=== PATIENT | female | born 1970 | race African-American/Black ===

== ENCOUNTER 2025-08-17 12:18 | Outpatient (REF) | payer OTHER, SELFPAY | END 2025-08-17 12:19 | disposition home or self-care (01) | LOC: HO.LNP 12:18 | PROVIDERS: PCP Internal Medicine; Visit Provider Obstetrics & Gynecology | DX: N95.0 Postmenopausal bleeding (principal) | CPT/HCPCS: 87626; 88175 ==

== ENCOUNTER 2025-08-17 12:18 | Outpatient (AMB) | payer OTHER, SELFPAY ==
--- NOTE | 2025-08-17 12:33 | A.OFFVIS_ITS ---
Vital Signs 08/17/25 12:36 Height 5 ft 7 in Weight 233 lb BMI 36.5 BP 130/80 Blood Pressure Location Lt brachial Position Sitting Intake Visit Reasons: pmb Intake Note: no menses x 15 mos, then 07/12 25 had period x 4 days. Country Printer Required: No Allergies acetaminophen (From Vicodin) Allergy (Intermediate, Verified 08/17/25 12:40) Nausea and Vomiting hydrocodone (From Vicodin) Allergy (Intermediate, Verified 08/17/25 12:40) Nausea and Vomiting Medication List - Last Reconciled 08/17/25 by Margie Glover LPN atorvastatin (Lipitor) 40 mg PO DAILY losartan 100 mg PO DAILY Is last menstrual period known: Yes Last menstrual period: 04/12/24 Post menopausal: Yes Patient : No HPI Comments Details: Presenting complaining of an episode of vaginal bleeding after 15 months of a menorrhea [facility] Family History Mother High blood pressure determined by examination Father No problems noted. Female Reproductive History Menstrual Age of Menarche: 15 Date of last menstrual period: 04/12/24 Review of Systems Const All systems reviewed & are unremarkable except as noted in HPI and below Physical Exam Vital Signs: Last Vital Signs BP 130/80 08/17/25 12:36 BMI result Body Mass Index 36.5 General: Yes no CVA tenderness External Female Exam: normal external appearance and normal appearance of the urethra Speculum Exam - Vagina: normal appearance of the vagina, normal palpation, no lesions and no masses Speculum Exam - Cervix: normal appearance of the cervix, normal palpation, no lesions, no masses and nontender Bimanual exam- vagina & uterus: normal bimanual exam, normal palpation, uterine size normal, normal palpation, uterine shape normal, No Cervical tenderness present and non-tender Bimanual Exam- Adnexa, other: normal adnexae Back/Spine/Pelvis Back: no CVA tenderness Assessment & Plan Assessment & Plan (1) Postmenopausal bleeding: Code(s): N95.0 - Postmenopausal bleeding Category: Medical Plan: Discussed with the patient the differential diagnosis of post menopausal bleeding with normal pelvic exam including but not limited to, endometrial hyperplasia, cancer, polyps and other causes; co testing done, recommended ultr asound to measure the endometrial stripe; discussed with the patient that if the endometrial thickness is 4 mm or less the negative predictive value of endometrial pathology is 99%, otherwise If endometrial thickness is more than 4 mm will proceed with endometrial sampling versus hysteroscopy D&C polypectomy depending on the ultrasound findings. Instructed the patient to schedule an ultrasound with a follow-up appointment in 2 weeks. All questions answered, the patient verbalized understanding and agreed with the plan. This note was generated with a voice recognition program. Some errors may have been overlooked during the review of this note. Sometimes these errors may affect the content or meaning of a given sentence. Orders: Orders US pelvic and transvaginal Today N95.0 - Postmenopausal bleeding Coding Level of Care Code New Pt Level 3 (07578) Diagnoses Postmenopausal bleeding N95.0
[2025-08-17 12:36] VITALS: BP 130/80; BMI 36.5
--- OUTSIDE RECORDS SUMMARY | 2025-08-17 15:14 | XMS_ITS | Encounter Summary ---
Author Organization [facility] Address [address] [place] [address] Care Team Providers Care Social Worker School Name Role Phone Oni Graham MD Primary Care Provider [phone] Kirstie Martínez MD Primary Care Provider [phone] Unknown Pcp, Non g Primary Care Provider Unava ilZabrina Craig MD Primary Care Provider [phone] Encounter Details Date Type Department Care Team (Late st Contact Info) Description 04/06/2019 Orders Only [facility] Primary Care Internal Medicine [address] [place] [address] [address] [place] [id number] Oni Graham MD [facility] [address] [place] [id number] Social History Tobacco Use Types Packs/Day Years Used Date Smoking Tobacco: Never Smokeless Tobacco: Never Alcohol Use Standard Drinks/Week Comments Yes 0 (1 standard drink = 0.6 oz pur e alcohol) 2-4 glasses wine/week Comments No Sex and Gender Information Value Date Recorded Sex Assigned at Not on file Legal Sex Female 9:06 AM EDT Gender Identity Not on file Sexual Orientation Not on file Occupation Industry Job Start Date Job End 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 She should complete course of nitrofurantoin as prescribed. * Oni Graham MD - 04/07/2019 7:52 AM EDT Urinalysis consistent with UTI. Please start patient on Macrobid 100 mg twice daily for 5 days pending results of culture documented in this encounter Plan of Treatment Not on file documented as of this encounter Procedures * Due to [place] [employer] law, this organization might not be sharing negative HIV tests. Procedure Name Priority Date/Time Associated Diagnosis Comments CULTURE, URINE, ROUTINE Routine 04/06/2019 11:04 AM EDT Urinary frequency Burning with urination URINALYSIS, COMPLETE INCLUDES DIPSTICK AND MICROSCOPIC Routine 04/06/2019 11:04 AM EDT Urinary frequency Burning with urination documented in this encounter Results * Due to [place] [employer] law, this organization might not be sharing negative HIV tests. * (ABNORMAL) URINALYSIS, COMPLETE INCLUDES DIPSTICK AND MICROSCOPIC (04/06/2019 11:04 AM EDT) Color (Urine) YELLOW YELLOW [facility] Appearance (Urine) CLOUDY(A) CLEAR [facility] Specific gravity (Urine) 1.012 1.001 - 1.035 [facility] pH (Urine) 6.0 5.0 - 8.0 [facility] Glucose (Urine) NEGATIVE NEGATIVE [facility] Bilirubin (Urine) NEGATIVE NEGATIVE [facility] Ketones (Urine) NEGATIVE NEGATIVE [facility] Hemoglobin (Urine) 3+(A) NEGATIVE [facility] Protein (Urine) NEGATIVE NEGATIVE [facility] Nitrite (Urine) POSITIVE(A) NEGATIVE [facility] Leukocyte esterase (Urine) 3+(A) NEGATIVE [facility] WBC (Urine) > OR = 60(A) < OR = 5 /HPF [facility] RBC (Urine Sed) 3-10(A) < OR = 2 /HPF [facility] Epithelial cells.squamous (Urine sed) 0-5 < OR = 5 /HPF [facility] Bacteria (Urine) FEW(A) NONE SEEN /HPF [facility] Hyaline casts (Urine sed) NONE SEEN NONE SEEN /LPF [facility] 04/06/2019 11:0 4 AM EDT 04/06/2019 7:55 PM EDT Narrative Resulting Agency Comment [id number] [facility] SAME DAY RESULT Final Resul t [facility] [address] [place] [address] * (ABNORMAL) CULTURE, URINE, ROUTINE (04/06/2019 11:04 AM EDT) Bacteria culture (Urine) SEE NOTE(A) [facility] Comment: CULTURE, URINE, ROUTINE MICRO NUMBER: [id number] TEST STATUS: FINAL SPECIMEN SOURCE: NOT GIVEN SPECIMEN QUALITY: ADEQUATE RESULT: Greater than 100,000 CFU/mL of Escherichia coli E.coli INT WILL AMOX/CLAVULANATE S <=2 AMPICILLIN S 4 AMP/SULBACTAM S <=2 CEFAZOLIN NR <=4 2 CEFEPIME S <=1 CEFTRIAXONE S <=1 CIPROFLOXACIN S <=0.25 ERTAPENEM S <=0.5 GENTAMICIN S <=1 IMIPENEM S <=0.25 LEVOFLOXACIN S <=0.12 NITROFURANTOIN S <=16 PIP/TAZOBACTAM S <=4 TOBRAMYCIN S <=1 TRIMETHOPRIM/SULFA S <=20 S=Susceptible I=Intermediate R=Resistant * = Not Tested NR = Not Reported NN = See Therapy Comments THERAPY COMMENTS Note 1: For infections other than uncomplicated UTI caused by E. coli, K. pneumoniae or P. mirabilis: Cefazolin is resistant if WILL > or = 8 mcg/mL. (Distinguishing susceptible versus intermediate for isolates with WILL < or = 4 mcg/mL requires additional testing.) Note 2: For uncomplicated UTI caused by E. coli, K. pneumoniae or P. mirabilis: Cefazolin is susceptible if WILL <32 mcg/mL and predicts susceptible to the oral agents cefaclor, cefdinir, cefpodoxime, cefprozil, cefuroxime, cephalexin and loracarbef. 04/06/2019 11:0 4 AM EDT 04/06/2019 7:55 PM EDT Narrative Resulting Agency Comment [id number] [facility] Final Result Performing Organization Address City/State/[facility] Co de Phone Number [facility] [address] [place] [address] documented in this encounter Visit Diagnoses Diagnosis Urinary frequency Burning with urination Dysuria documented in this encounter Care Teams Social Worker School Relationship Specialty Start Date End Date Oni Graham MD PCP - General 10/06/17 09/13/20 Kirstie Martínze MD [address] [place] [id number] PCP - General 09/14/20 02/22/22 Unknown Pcp, Non Rmg PCP - General 02/23/22 02/25/22 Zabrina Price MD [address] [address] PCP - General Family Medicine 02/26/22 documented as of this encounter
--- OUTSIDE RECORDS SUMMARY | 2025-08-17 15:14 | XMS_ITS | Clinical Summary ---
Author Organization [facility] Address [address] [place] [phone] Phone Care Team Providers Care Access Developer Name Role Phone Kelly Jaimes MD Primary Care Provider [phone] Allergies Active Allergy Reactions Criticality Noted Date Comments Hydrocodone Nausea And Vomiting High 03/25/2024 Vicoden-causes severe sick to stomach Medications polyethylene glycol (Golytely) 236-22.74-6.74 -5.86 gram solution Take 4L by mouth once for one dose. May substitue any PEG. Starting at 6PM the night before your procedure drink 1 8oz glasses at your own pace until you complete half of the gallon. Finish 2nd half of the gallon 5 hours before your procedure. 4000 mL 4 Active bisacodyL (DULCOLAX) 5 mg EC tablet Take 2 tablets by mouth right before beginning bowel prep. See instructions provided by the office 2 tablet 4 Active cranberry fruit 400 mg tablet Take 500 mg by mouth daily. Active multivitamin (multivitamin-i benjamín-minerals) tablet Take by mouth daily. Active senna-docusate (PERICOLACE) 8.6-50 mg per tablet Take 1 tablet by mouth 1 (one) time each day. Active Medical History Medical History Date Comments Hypertension Hyperlipidemia Chronic constipation GERD (gastroesophageal reflux disease) Varicose veins of both lower extremities Family History Medical History Relation Name Comments Breast cancer Mother's Sister Relation Name Status Comments Mother's Sister Social History Tobacco Use Types Packs/Day Years Used Date Smoking Tobacco: Never Smokeless Tobacco: Never Tobacco Cessation:Counseling Given: Not Answered Alcohol Use Standard Drinks/Week Comments Yes 0 (1 standard drink = 0.6 oz pure alcohol) 1-2 DRINKS PER EVENT AND DRINKS MAYBE 4 TIMES PER WEEK Interpersonal Safety Answer Date Record ed Physical Abuse Unrecognized value 09/06/2024 Verbal Abuse Unrecognized value 09/06/2024 Comments No Sex and Gender Information Value Date Recorded Sex Assigned at Female 09/06/2024 11:08 AM EST Legal Sex Female 11:05 AM EDT Gender Identity Female 09/06/2024 11:08 AM EST Sexual Orientation Straight 09/06/2024 11 :08 AM EST Obstetrics History Last Filed Vital Signs Vital Sign Reading Time Taken Comments Blood Pressure 134/68 09/06/2024 1:25 PM EST Pulse 78 09/06/2024 1:25 PM EST Temperature 36.7 C (98 F) 09/06/2024 1:05 PM EST Respiratory Rate 18 09/06/2024 1:25 PM EST Oxygen Saturation 100% 09/06/2024 1:25 PM EST Inhaled Oxygen Concentration - - Weight 102 kg (225 lb) 09/06/2024 11:51 AM EST Height 170.2 cm (5' 7 ) 09/06/2024 11:51 AM EST Body Mass Index 35.24 09/06/2024 11:51 AM EST Plan of Treatment Health Maintenance Due Date Last Done Comments Hepatitis B Vaccines (1 of 3 - 19+ 3-dose series) 1991 Cervical Cancer Screening: Pap Smear 1993 Pneumococcal Vaccine: 50+ Years (1 of 1 - PCV) 2022 Zoster Vaccines (1 of 2) 2022 Breast Cancer Screening 10/07/2023 10/07/2021 Cholesterol Screening (Lipid Panel) 05/06/2024 HIV Screening 05/06/2024 Hepatitis C Screening 05/06/2024 Social Influencers of Health Screening 05/06/2024 Depression Screening 10/12/2024 COVID-19 Vaccine ( season) 2025 10/10/2021, 11/16/2020, 10/19/2020 Influenza Vaccine (#1) 2025 , 06/24/2023, 07/09/2022, Additional history exists DTaP,Tdap,and Td Vaccines (3 - Td or Tdap) 01/31/2029 01/31/2019, 11/09/2008 Colorectal Cancer Screening: Colonoscopy 09/06/2029 09/06/2024 RSV Immunization Adult Patients (1 - 1-dose 75+ series) 2047 HIB Vaccines Aged Out No longer eligi ble based on patient's age to complete this topic HPV Vaccines Aged Out No longer eligi ble based on patient's age to complete this topic Hepatitis A Vaccines Aged Out No long er eligible based on patient's age to complete this topic IPV Vaccines Aged Out No longer eligi ble based on patient's age to complete this topic MMR Vaccines Aged Out No longer eligi ble based on patient's age to complete this topic Meningococcal ACWY Vaccine Aged Out N o longer eligible based on patient's age to complete this topic Meningococcal B Vaccine Aged Out No l onger eligible based on patient's age to complete this topic RSV Immunization Patients Under 20 months Aged Out No longer eligible based on patient's age to complete this topic Varicella Vaccines Aged Out No longer eligible based on patient's age to complete this topic Procedures Procedure Name Priority Date/Time Associated Diagnosis Comments COLONOSCOPY Routine 09/06/2024 1:04 PM EST Encounter for screening for malignant neoplasm of colon from Last 3 Months or Most Recently Relevant to Health Maintenance Results * COLONOSCOPY Anesthesia - MAC; [facility] ENDOSCOPY (09/06/2024 1:04 PM EST) Anatomical Region Laterality Modality Endoscopy 09/06/2024 12:4 1 PM EST Impressions 09/06/2024 1:06 PM EST - Two diminutive polyps in the transverse colon and in the ascending colon, removed with a jumbo cold forceps. Resected and retrieved. - Internal hemorrhoids. Recommendation: - Await pathology results. - Repeat colonoscopy in 5 years for surveillance. Narrative 09/06/2024 1:[address] [facility] GI Patient Name: Aziza Walters Procedure Date: 09/06/2024 12:41 PM Date of : 1970 Age: 53 Gender: Female Note Status: Finalized Attending MD: Yahaira Conroy MD, Procedure Date No Time: 09/06/2024 Procedure: Colonoscopy Indications: Screening for colorectal malignant neoplasm Providers: Yahaira Conroy MD Referring MD: Yahaira Conroy MD Medicines: Monitored Anesthesia Care Complications: No immediate complications. Estimated blood loss: Minimal. Estimated Blood Loss: Estimated blood loss was minimal. Procedure: Pre-Anesthesia Assessment: - Prior to the procedure, a History and Physical was performed, and patient medications and allergies were reviewed. The patient is competent. The risks and benefits of the procedure and the sedation options and risks were discussed with the patient. All questions were answered and informed consent was obtained. Patient identification and proposed procedure were verified by the physician, the nurse, the furnace operator and the astro technician in the pre-procedure area in the endoscopy suite. Mental Status Examination: alert and oriented. Airway Examination: normal oropharyngeal airway and neck mobility. Respiratory Examination: clear to auscultation. CV Examination: normal. Prophylactic Antibiotics: The patient does not require prophylactic antibiotics. Prior Anticoagulants: The patient has taken no anticoagulant or antiplatelet agents. ASA Grade Assessment: III - A patient with severe systemic disease. After reviewing the risks and benefits, the patient was deemed in satisfactory condition to undergo the procedure. The anesthesia plan was to use monitored anesthesia care (MAC). Immediately prior to administration of medications, the patient was re-assessed for adequacy to receive sedatives. The heart rate, respiratory rate, oxygen saturations, blood pressure, adequacy of pulmonary ventilation, and response to care were monitored throughout the procedure. The physical status of the patient was re-assessed after the procedure. After I obtained informed consent, the scope was passed under direct vision. Throughout the procedure, the patient's blood pressure, pulse, and oxygen saturations were monitored continuously. The Colonoscope was introduced through the anus and advanced to the cecum, identified by appendiceal orifice and ileocecal valve. The colonoscopy was performed without difficulty. The patient tolerated the procedure well. The quality of the bowel preparation was good. Findings: The perianal and digital rectal examinations were normal. Two sessile polyps were found in the transverse colon and ascending colon. The polyps were diminutive in size. These polyps were removed with a jumbo cold forceps. Resection and retrieval were complete. Estimated blood loss was minimal. Internal hemorrhoids were found during retroflexion. The hemorrhoids were Grade I (internal hemorrhoids that do not prolapse). Procedure Code(s): --- Professional --- 36254, Colonoscopy, flexible; with biopsy, single or multiple Diagnosis Code(s): --- Professional --- D12.3, Benign neoplasm of transverse colon (hepatic flexure or splenic flexure) D12.2, Benign neoplasm of ascending colon CPT copyright 2020 [employer]. All rights reserved. The codes documented in this report are preliminary and upon helicopter pilot review may be revised to meet current compliance requirements. Yahaira Conroy MD 09/06/2024 1:05:55 PM This report has been signed electronically.Yahaira Conroy MD Number of Addenda: 0 Note Initiated On: 09/06/2024 12:41 PM Scope Withdrawal Time: 0 hours 6 minutes 17 seconds Scope In: 12:46:55 PM Scope Out: 1:04:01 PM Endoscopy Department at [facility] - [address] [place] [id number] Procedure Note Yahaira Conroy MD - 09/06/2024 [facility] GI Patient Name: Aziza Walters Procedure Date: 09/06/2024 12:41 PM Date of : 1970 Age: 53 Gender: Female Note Status: Finalized Attending MD: Yahaira Conroy MD, Procedure Date No Time: 09/06/2024 Procedure: Colonoscopy Indications: Screening for colorectal malignant neoplasm Providers: Yahaira Conroy MD Referring MD: Yahaira Conroy MD Medicines: Monitored Anesthesia Care Complications: No immediate complications. Estimated blood loss: Minimal. Estimated Blood Loss: Estimated blood loss was minimal. Procedure: Pre-Anesthesia Assessment: - Prior to the procedure, a History and Physicalwas performed, and patient medications and allergieswere reviewed. The patient is competent. The risks and benefits of the procedure and the sedation optionsand risks were discussed with the patient. Allquestions were answered and informed consent was obtained. Patient identification and proposed procedure were verified by the physician, the nurse, theanesthetist and the astro technician in the pre-procedure area in the endoscopy suite. Mental Status Examination: alertand oriented. Airway Examination: normal oropharyngeal airway and neck mobility. Respiratory Examination: clear to auscultation. CV Examination: normal. Prophylactic Antibiotics: The patient does notrequire prophylactic antibiotics. Prior Anticoagulants: The patient has taken no anticoagulant or antiplatelet agents. ASA Grade Assessment: III - A patient with severe systemic disease. After reviewing the risksand benefits, the patient was deemed in satisfactory condition to undergo the procedure. The anesthesia plan was to use monitored anesthesia care (MAC). Immediately prior to administration of medications, the patient was re-assessed for adequacy to receive sedatives. The heart rate, respiratory rate, oxygen saturations, blood pressure, adequacy of pulmonary ventilation, and response to care were monitored throughout the procedure. The physical status ofthe patient was re-assessed after the procedure. After I obtained informed consent, the scope was passed under direct vision. Throughout theprocedure, the patient's blood pressure, pulse, and oxygen saturations were monitored continuously. The Colonoscope was introduced through the anus and advanced to the cecum, identified by appendiceal orifice and ileocecal valve. The colonoscopy was performed without difficulty. The patient tolerated the procedure well. The quality of the bowel preparation was good. Findings: The perianal and digital rectal examinations were normal. Two sessile polyps were found in the transversecolon and ascending colon. The polyps were diminutive in size. These polyps were removed with a jumbo cold forceps. Resection and retrieval were complete. Estimated blood loss was minimal. Internal hemorrhoids were found duringretroflexion. The hemorrhoids were Grade I (internal hemorrhoids that do not prolapse). Procedure Code(s): --- Professional --- 54361, Colonoscopy, flexible; with biopsy, singleor multiple Diagnosis Code(s): --- Professional --- D12.3, Benign neoplasm of transverse colon (hepatic flexure or splenic flexure) D12.2, Benign neoplasm of ascending colon CPT copyright 2020 [employer]. All rights reserved. The codes documented in this report are preliminary and upon helicopter pilot reviewmay be revised to meet current compliance requirements. Yahaira Conroy MD 09/06/2024 1:05:55 PM This report has been signed electronically.Yahaira Conroy MD Number of Addenda: 0 Note Initiated On: 09/06/2024 12:41 PM Scope Withdrawal Time: 0 hours 6 minutes 17 seconds Scope In: 12:46:55 PM Scope Out: 1:04:01 PM Endoscopy Department at [facility] - [address] [place] [id number] IMPRESSION: - Two diminutive polyps in the transverse colon and in the ascending colon, removed with a jumbo cold forceps. Resected and retrieved. - Internal hemorrhoids. Recommendation: - Await pathology results. - Repeat colonoscopy in 5 years for surveillance. aYhaira Conroy MD GI~PROCEDURE ORDERABLES Fin al Result from Last 3 Months or Most Recently Relevant to Health Maintenance Insurance [facility] Care Teams Access Developer Relationship Specialty Start Date End Date Kelly aJimes MD [address] [place] [address] [place] [address] PCP - General 12/18/23
--- OUTSIDE RECORDS SUMMARY | 2025-08-17 15:14 | XMS_ITS | Continuity of Care Document ---
Author Organization [facility] Address [address] [place] [address] Care Team Providers Care Stock Unloader Name Role Phone Zabrina Price MD Primary Care Provider [phone] Encounters Date Type Department Care Team Description 10/07/2021 3:30 PM EST Radiology [address] [phone] 10/01/[address] [phone] Esme Mcdonald Tech [facility] Program 10/01/[address] [phone] Kirstie Martínez MD Patient Questions 06/04/[address] [phone] Kirstie Martínez MD Results ; Labs/orders 05/27/2021 Minor Procedure/Test [address] [phone] Letty Ferreira NP 05/23/2021 1:15 PM EDT Office Visit [address] [phone] Letty Ferreira NP Superficial thrombophlebitis of right leg (Primary Dx); Varicose veins of both lower extremities with inflammation 05/16/[address] [address] Kirstie Martínez MD Results 05/13/2021 1:45 PM EDT Office Visit [address] [address] Kirstie Martínez MD Pain and swelling of right lower leg (Primary Dx); Superficial thrombophlebitis of right leg 05/13/[address] [address] Kirstie Martínez MD Knee Pain (Right); Varicose Veins 03/26/[address] [address] Kirstie Martínez MD Labs/orders 03/26/[address] [address] Kirstie Martínez MD Results ; Labs/orders 03/25/2021 Orders Only [address] [address] Kirstie Martínez MD 03/25/2021 Travel 03/25/2021 8:30 AM EDT CPE - 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 [address] [address] Kirstie Martínez MD Routine history and physical examination of adult (Primary Dx); Irregular menses; Vitamin D deficiency; Hyperlipidemia, unspecified hyperlipidemia type; Encounter for screening for malignant neoplasm of breast, unspecified screening modality; Lipid screening; Screening for diabetes mellitus; Screening for colon cancer 01/22/[address] [address] Keila Vera CMA Appointment 06/08/2020 Travel 06/08/2020 2:30 PM EDT Radiology [facility] Mammography [address] [place] [phone] Breast cancer screening by mammogram 02/07/2020 Travel 01/25/2020 Travel 06/23/2019 Letter/Form [facility] Primary Care Internal Medicine [address] [facility] [address] [place] [address] Oni Graham MD 05/16/2019 Telephone [facility] Primary Care Internal Medicine [address] [facility] [address] [place] [address] Oni Graham MD UTI 05/10/2019 Telephone [facility] Primary Care Internal Medicine [address] [facility] [address] [place] [phone] Oni Graham MD Patient Questions 04/07/2019 Telephone [facility] Primary [facility] Internal Medicine [address] [address] Oni Graham MD Results (Confirmed pharmacy) 04/06/2019 Orders Only [facility] Primary [facility] Internal Medicine [address] [address] Oni Graham MD 04/06/2019 Telephone [facility] Primary [facility] Internal Medicine [address] [address] Oni Graham MD UTI 02/19/2019 8:45 AM EDT Radiology [facility]. Mammography [address] [place] [address] Screening breast examination 01/31/2019 Orders Only [facility] Primary [facility] Internal Medicine [address] [address] Oni Graham MD Medications 01/31/2019 3:00 PM EDT CPE - 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 [facility] Primary [facility] Internal Medicine [address] [address] Oni Graham MD Routine history and physical examination of adult (Primary Dx); Other neutropenia; Vitamin D deficiency; Screening for nephropathy; Obesity, unspecified classification, unspecified obesity type, unspecified whether serious comorbidity present; Screening breast examination; Encounter for gynecological examination without abnormal finding; Screening for diabetes mellitus; Screening for hyperlipidemia; Need for vaccination 04/12/2018 Letter/Form [facility] Primary Care Internal Medicine [address] [facility] [address] [place] [address] Oni Graham MD 03/30/2018 Letter/Form [facility] Primary [facility] Internal Medicine [address] [facility] [address] [place] [phone] Oni Graham MD 01/08/2018 Telephone [facility] Primary Care Internal Medicine [address] [facility] [address] [place] [phone] Oni Graham MD Results (+UTI) 01/05/2018 Orders Only [facility] Primary Care Internal Medicine [address] [address] Oni Graham MD 01/05/2018 Telephone [facility] Primary Care Internal Medicine [address] [address] Oni Graham MD UTI 11/03/2017 Telephone [facility] Primary Care Internal Medicine [address] [place] [address] Oni Graham MD Labs/orders 11/03/2017 Orders Only [facility] Primary [facility] Internal Medicine [address] [place] [address] Oni Graham MD Medications 11/03/2017 2:40 PM EST Office Visit [facility] Primary Care Internal Medicine [address] [address] Oni Graham MD Subacute vaginitis (Primary Dx); Encounter for gynecological examination with abnormal finding; Screening for malignant neoplasm of cervix 10/19/2017 Orders Only [facility] Primary Care Internal Medicine [address] [address] Oni Graham MD Medications 10/19/2017 3:00 PM EST CPE - 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 [facility] Primary Care Internal Medicine [address] [address] Oni Graham MD Routine history and physical examination of adult (Primary Dx); Screening for deficiency anemia; Screening for endocrine, nutritional, metabolic and immunity disorder; Screening for diabetes mellitus; Screening for hyperlipidemia 01/05/2015 Orders Only [facility] [address] [address] Yesenia Modi MD 01/04/2015 Minor Procedure/Test URG CARE UNSPECIFIED Jorge Alberto Bernabe MD 01/04/2015 11:40 AM EDT Office Visit [address] [address] Arelis Lama NP Knee pain (Primary Dx) 01/04/[address] [address] Yesenia Modi MD Swelling 01/02/2015 3:15 PM EDT Office Visit [address] [address] Jorge Alberto Bernabe MD Pain of lower extremity (Primary Dx) 01/02/[address] [address] Yesenia Modi MD Leg Pain; CPE/Physical 01/09/[address] [address] Yesenia Modi MD Appointment 01/07/[address] [address] Yesenia Modi MD Anxiety 10/22/[address] [phone] Siobhan Vincent I RN Vomiting 10/22/2011 Telephone [facility] Orthopedic Surgery [address] [place] [address] [place] [address] Yousif Jaeger MD Patient Questions (irais) 10/21/2011 12:45 PM EST Office Visit [address] [address] Theodore Oscar MD Low back pain (Primary Dx) 09/30/2011 Telephone [facility] Orthopedic Surgery [address] [facility] [address] [place] [address] Rashard Holcomb PA Cancellation 09/15/2011 3:00 PM EST Office Visit [facility] Rehabilitation OT [address]/ Parkinson's [address] [place] [address] Dora Marquez OT Mallet finger (Primary Dx) 09/02/2011 3:30 PM EST Office Visit [facility] Orthopedic Surgery [address] [facility] [address] [place] [address] Rashard Holcomb PA Mallet finger (Primary Dx) 08/11/2011 Telephone [facility] Orthopedic Surgery [address] [address] Rashard Holcomb PA Patient Questions (fei) 07/08/2011 Consult (Initial) Mallet finger 07/08/2011 Telephone [facility] Orthopedic Surgery [address] [address] Rashard Holcomb PA Letter/form Request (Fei) 07/08/2011 1:30 PM EDT Consult (Initial) [facility] Orthopedic Surgery [address] [address] Rashard Holcomb PA Mallet finger (Primary Dx) 07/04/2011 Telephone [facility] [address] [place] [address] Yesenia Modi MD Erroneous encounter-disregard 06/30/2011 Telephone [facility] [address] [place] [address] Yesenia Modi MD Letter/form Request 06/25/2011 ER NON FC SA [facility] [address] [place] [address] Sprain and strain of wrist; Pain in limb; Accident - crushed by object; Injury, finger; Sprain and strain of hand 06/25/[address] [facility] [address] [place] [address] [facility], Emergency Rm Provider 06/25/2011 Orders Only NON FC SA [facility] [address] [place] [address] [facility], Emergency Rm Provider 06/24/2011 Orders Only May [address] [address] Yesenia Modi MD 06/24/[address] [address] Yesenia Modi MD Follow Up (finger injury); Information 06/23/[address] [address] Yesenia Modi MD Follow Up (finger pain); Information 06/18/2011 4:00 PM EDT Radiology February X-Ray [facility] [place] [address] Pain in finger of right hand 06/18/2011 Orders Only [address] [address] Yesenia Modi MD 06/18/2011 3:20 PM EDT Office Visit [address] [address] Rosalba Mason NP Pain in finger of right hand (Primary Dx) 06/18/[address] [address] Yesenia Modi MD Injury (ring finger, rt hand ) 06/11/2011 CPE - 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 [facility] [employer] DEVELOPER UNSPECIFIED Routine gynecological examination 06/11/2011 Orders Only Lab 01/20/[address] [address] Yesenia Modi MD Cancellation 12/18/2010 3:00 PM EST Office Visit [address] [address] Yesenia Modi MD Reactive depression (situational) (Primary Dx) 12/18/[address] [address] Yesenia Modi MD Depression 06/05/2010 Orders Only LAB UNSPECIFIED 06/05/2010 CPE - 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 SAP BPC DEVELOPER UNSPECIFIED Routine gynecological examination 04/08/2010 Letter/Form [address] [place] [address] [place] [address] Yesenia Modi MD 02/26/2010 Letter/Form [address] [address] [address] [place] [address] Yesenia Modi MD 01/31/2010 1:00 PM EDT CPE - 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 [address] [place] [address] [address] [place] [address] Yesenia Modi MD Routine general medical examination at a health care facility (Primary Dx); Screening for hyperlipidemia; Constipation 01/10/2010 Telephone [address] [place] [address] [address] [place] [address] ScottArlyn LVN LPN Rectal Pain 09/12/2009 Office Visit [facility]EL[employer] UNSPECIFIED Contraception, Counseling NEC 06/08/2009 ER NON FC SA [address] [address] Abdominal Colic; Constipation; Abdominal Pain, Right Lower Quadrant; Abdominal Pain, Left Lower Quadrant 06/08/2009 ER NON FC SA [address] [address] 06/08/2009 Orders Only NON FC SA [address] [address] Sv, Unknown Provider 06/08/2009 Telephone [address] [place] [address] [place] [address] Yesenia Modi MD Urgent Symptom(s) 05/30/2009 CPE - 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 SAP BPC DEVELOPER UNSPECIFIED Routine Gynecological Examination 05/30/2009 Orders Only LAB UNSPECIFIED 05/16/2009 Telephone [address] [place] [address] [place] [address] Yesenia Modi MD Letter/form Request 12/08/2008 Telephone [address] [place] [address] [address] [place] [address] Yesenia Modi MD No Show 11/09/2008 Orders Only [place] [address] [place] [address] [place] [address] Yesenia Modi MD 11/09/2008 1:00 PM EST CPE - 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 [facility] [address] [place] [address] Yesenia Modi MD Routine General Medical Examination at a Health Care Facility; Need for Prophylactic Vaccination with Tetanus-Diphtheria (TD) 05/24/2008 Orders Only LAB UNSPECIFIED 05/24/2008 CPE - 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 SAP BPC DEVELOPER UNSPECIFIED Routine Gynecological Examination 04/10/2008 Office Visit [facility] [employer] DEVELOPER UNSPECIFIED Vaginitis and Vulvovaginitis 03/15/2008 Office Visit [facility] [employer] DEVELOPER UNSPECIFIED Vaginitis and Vulvovaginitis 09/27/2007 Orders Only LAB UNSPECIFIED 09/27/2007 Office Visit [facility] [employer] DEVELOPER UNSPECIFIED Vaginitis and Vulvovaginitis 05/19/2007 Office Visit [facility] [employer] DEVELOPER UNSPECIFIED Vaginitis and Vulvovaginitis 05/19/2007 Orders Only LAB UNSPECIFIED 03/18/2007 CPE - 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 SAP BPC DEVELOPER UNSPECIFIED Routine Gynecological Examination 02/23/2007 Office Visit [facility] [employer] DEVELOPER UNSPECIFIED Vaginitis and Vulvovaginitis 10/02/1998 CPE - 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 OCC MED UNSPECIFIED Sophia Renner, [facility] examination of defined subpopulation Allergies Active Allergy Reactions Criticality Noted Date Comments Hydrocodone-Acetaminoph en Nausea/GI Upset 10/22/2011 Vomiting, ok with Tylenol Medications No known medications Active Problems Problem Noted Date Diagnosed Date Hyperlipidemia 03/25/2021 Overview (03/25/2021): 03/25/21 update lipids - diet and lifestyle recs Irregular menses 03/25/2021 Overview (03/25/2021): 03/25/21 irregular menses x 6 months, with associated hot flushes. Suspecting perimenopause. 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 10/19/2017 Overview (03/25/2021): Will check quantiferon gold to r/o LTBI Resolved Problems Problem Noted Date Diagnosed Date Resolved Date Neutropenia 10/20/2017 03/25/2021 Health maintenance examination 11/09/2008 03/25/2021 Overview (01/31/2010): Td: 2008 PAP: May 2009 -[employer] [facility] Whitten Immunizations Immunization Administration Dates Next Due COVID-19, mRNA (Moderna Pre Fall 2022) Monovalent, 100 mcg/0.5 ml or 50 mcg/0.25 ml dose 10/10/2021,11/16/2020,10/19/2020 Influenza,injectable,quad,Prsrv Fr 07/09,07/01/2021,06/21/2020,2017 Influenza,seasonal,trivalent ,preserva tive (FLUZONE MDV) 07/21/2012 Td (adult), adsorbed 11/09/2008 Tdap 01/31/2019 influenza,seasonal,trivalent ,PF (Fluzone, Fluarix, Flulaval) 07/08/2017,06/24/2016,07/18/2015 Family History Medical History Relation Name Comments No Known or Significant Medical History Brother 1 x 5 No Known or Significant Medical History Father Cancer - Breast Maternal aunt Diabetes Maternal grandmother Hypertension Maternal grandmother No Known or Significant Medical History Mother No Known or Significant Medical History Sister 1 x 5 Blood Clot/DVT/Hypercoagulation Neg Hx Cancer - Colon Neg Hx Cancer - Ovarian Neg Hx Colon Polyp Neg Hx Heart Disorder Neg Hx Stroke Neg Hx Relation Name Status Comments Brother 1 x5 Alive Brother 2 Alive Brother 3 Alive Brother 4 Alive Brother 5 Alive Father Alive Maternal aunt Maternal grandfather unknown Maternal grandmother Mother Alive Paternal grandfather Paternal grandmother unknown Sister 1 x5 Alive Sister 2 Alive Sister 3 Alive Sister 4 Alive Social History Smoking Status as of 08/17/2025 Tobacco Use Types Packs/Day Years Used Date Smoking Tobacco: Never Assessed PHQ-2 Answer Date Recorded PHQ-2 Score 0 03/25/2021 Intimate Partner Violence Answer Date R ecorded Fear of Current or Ex-Partner Not on file Emotionally Abused Not on file 06/01/2023 Physically Abused Not on file 06/01/2023 Sexually Abused Not on file 06/01/2023 Feel Safe at Home Not on file 06/01/2023 Sex and Gender Information Value Date Recorded Sex Assigned at Not on file Legal Sex Female 9:06 AM EDT Gender Identity Not on file Sexual Orientation Not on file Last Filed Vital Signs Vital Sign Reading Time Taken Comments Blood Pressure 116/79 05/23/2021 1:11 PM EDT Pulse 73 05/23/2021 1:11 PM EDT Temperature 37.1 C (98.7 F) 01/31/2019 3:27 PM EDT Respiratory Rate 20 01/02/2015 3:31 PM EDT Oxygen Saturation 100% 01/31/2019 3:27 PM EDT right Inhaled Oxygen Concentration - - Weight 94.3 kg (208 lb) 05/23/2021 1:11 PM EDT Height 170.2 cm (5' 7 ) 05/13/2021 1:52 PM EDT Body Mass Index 32.58 05/13/2021 1:52 PM EDT Plan of Treatment Not on file Procedures * Due to [place] state law, this organization might not be sharing negative HIV tests. Procedure Name Priority Date/Time Associated Diagnosis Comments MAMMOGRAPHY BILAT 3D JENNIFER(DX:SCREENING FOR BREAST CA Z12.31)FC Routine 10/07/2021 3:36 PM EST DUPLEX/DOPPLER SCAN OF ARTERY OR VEIN 05/27/2021 DUPLEX/DOPPLER SCAN OF ARTERY OR VEIN 05/13/2021 Pain and swelling of right lower leg VITAMIN D, 25-HYDROXY, TOTAL, IMMUNOASSAY Routine 03/25/2021 9:15 AM EDT HEMOGLOBIN A1C Routine 03/25/2021 9:15 AM EDT Screening for diabetes mellitus HCG, TOTAL, QL Routine 03/25/2021 9:15 AM EDT Irregular menses VENIPUNCTURE Routine 03/25/2021 9:15 AM EDT Hyperlipidemia, unspecified hyperlipidemia type FECAL GLOBIN IMMUNOCHEMICAL TEST (SHALA) Routine 03/25/2021 Screening for colon cancer MAMMOGRAM SCREENING TOMOSYNTHESIS, BILATERAL Routine 06/08/2020 2:50 PM EDT Breast cancer screening by mammogram URINALYSIS, COMPLETE INCLUDES DIPSTICK AND MICROSCOPIC Routine 04/06/2019 11:04 AM EDT Urinary frequency Burning with urination CULTURE, URINE, ROUTINE Routine 04/06/2019 11:04 AM EDT Urinary frequency Burning with urination MAMMOGRAM SCREENING TOMOSYNTHESIS, BILATERAL Routine 02/19/2019 8:33 AM EDT Screening breast examination HEMOGLOBIN A1C Routine 01/31/2019 4:34 PM EDT Screening for diabetes mellitus THYROID CASCADING REFLEX Routine 01/31/2019 4:34 PM EDT Screening breast examination URINE DIP, REFLEX TO MICROSCOPIC Routine 01/31/2019 4:34 PM EDT Screening for nephropathy VITAMIN D, 25-HYDROXY, TOTAL, IMMUNOASSAY Routine 01/31/2019 4:34 PM EDT Vitamin D deficiency BASIC METABOLIC PANEL WITH (GFR) Routine 01/31/2019 4:34 PM EDT Screening for nephropathy CBC INCLUDES DIFFERENTIAL AND PLATELET COUNT Routine 01/31/2019 4:34 PM EDT Other neutropenia LIPID PANEL WITH REFLEX TO DIRECT LDL Routine 01/31/2019 4:34 PM EDT Screening for hyperlipidemia URINALYSIS, COMPLETE INCLUDES DIPSTICK AND MICROSCOPIC Routine 01/05/2018 2:55 PM EDT Burning with urination CULTURE, URINE, ROUTINE Routine 01/05/2018 2:55 PM EDT Burning with urination THINPREP TIS PAP AND HPV RNA, HR E6/E7, TMA Routine 11/03/2017 4:40 PM EST Screening for malignant neoplasm of cervix CULTURE, GENITAL Routine 11/03/2017 4:15 PM EST Subacute vaginitis VITAMIN D, 25-HYDROXY, TOTAL, IMMUNOASSAY Routine 10/19/2017 4:05 PM EST Screening for endocrine, nutritional, metabolic and immunity disorder LIPID PANEL WITH REFLEX TO DIRECT LDL Routine 10/19/2017 4:05 PM EST Screening for hyperlipidemia HEMOGLOBIN A1C Routine 10/19/2017 4:05 PM EST Screening for diabetes mellitus GLUCOSE (BLOOD) Routine 10/19/2017 4:05 PM EST Screening for diabetes mellitus CBC INCLUDES DIFFERENTIAL AND PLATELET COUNT Routine 10/19/2017 4:05 PM EST Screening for deficiency anemia DUPLEX/DOPPLER SCAN OF ARTERY OR VEIN 01/04/2015 FINGERS - RIGHT Routine 06/25/2011 1:54 PM EDT XRAY HAND MIN 3 VWS - RIGHT Routine 06/18/2011 4:03 PM EDT Pain in finger of right hand ABDOMEN W/DECUB OR ERECT 2 VIE Routine 06/08/2009 11:34 PM EDT HEPATIC FUNCTION PANEL Routine 9 9:52 PM EDT BASIC METABOLIC PANEL Routine 06/08/2009 9:52 PM EDT LIPASE Routine 06/08/2009 9:52 PM EDT AMYLASE Routine 06/08/2009 9:52 PM EDT CBC 5 PART DIFF Routine 06/08/2009 9:52 PM EDT BASIC METABOLIC PANEL Routine 11/09/2008 Routine General Medical Examination at a Health Care Facility CBC 5 PART DIFF Routine 11/09/2008 Routine General Medical Examination at a Health Care Facility XRAY CHEST 2 VIEWS PA & LAT Routine 01/14/2007 4:50 PM EDT Tuberculin Test Reaction RUBEOLA IGG AB Routine 01/14/2007 3:30 PM EDT VARICELLA IGG AB Routine 01/14/2007 3:30 PM EDT MUMPS ANTIBODY (IGG) Routine 01/14/2007 3:30 PM EDT RUBELLA IGG AB Routine 01/14/2007 3:30 PM EDT HEPATITIS B SURFACE ANTIBODY, QUANTITATIVE Routine 01/14/2007 3:30 PM EDT Results * Due to [place] state law, this organization might not be sharing negative HIV tests. * MAMMOGRAPHY BILAT 3D JENNIFER (DX: SCREENING FOR BREAST CANCER Z12.31) (1 YR FROM LAST) FC (10/07/2021 3:36 PM EST) Anatomical Region Laterality Modality BREAST Bilateral Mammography Impressions 10/11/2021 10:51 AM EST : No specific mammographic evidence of malignancy. RECOMMENDATION: - Routine Screening Mammogram in 1 Year for both breasts. BI-RADS: 1 Negative (overall) RESULTS COMMUNICATED TO PATIENT: In a letter Narrative 10/11/2021 10:51 AM EST EXAMINATION: SCREENING MAMMOGRAM HISTORY: Routine screening mammogram. TECHNIQUE: Digital Bilateral, CAD ,tomosynthesis COMPARISON: Comparison is made to prior mammograms. BREAST COMPOSITION: The breasts are heterogeneously dense, which may obscure small masses. FINDINGS:No suspicious dominant mass lesions, clustered microcalcifications, or areas of unexplained architectural distortion are seen in either breast(s). us Kirstie Martínez MD IMG MAMMO ORDERABLES Final Resul t * DUPLEX/DOPPLER SCAN OF ARTERY OR VEIN (05/27/2021) Only the most recent of3 resultswithin the time period is included. Letty Ferreira NP CARDIOVASCULAR-NO INBASKET RTG Final Result * HCG, TOTAL, QL (03/25/2021 9:15 AM EDT) HCG, Qualitative (Screen) NEGATIVE [facility] Comment: Reference Range Non-: Negative : Positive 03/25/2021 9:15 AM EDT 03/25/2021 3:43 PM EDT Narrative Resulting Agency Comment [id number] Kirstie Martínez MD LAB SAME DAY RESULT Final Result Performing Organization Address [facility] Co de Phone Number [facility] [address] [place] [address] * HEMOGLOBIN A1C (03/25/2021 9:15 AM EDT) Only the most recent of3 resultswithin the time period is included. Hemoglobin A1C 5.2 <5.7 % of total Hgb [facility] Comment: For the purpose of screening for the presence of diabetes: <5.7% Consistent with the absence of diabetes 5.7-6.4% Consistent with increased risk for diabetes (prediabetes) > or =6.5% Consistent with diabetes This assay result is consistent with a decreased risk of diabetes. Currently, no consensus exists regarding use of hemoglobin A1c for diagnosis of diabetes in children. According to [place] Diabetes Association (ADA) guidelines, hemoglobin A1c <7.0% represents optimal control in non- diabetic patients. Different metrics may apply to specific patient populations. Standards of Medical Care in Diabetes(ADA). Estimated Average Glucose 108 mg/dL (calc) [facility] 03/25/2021 9:15 AM EDT 03/25/2021 3:43 PM EDT Narrative Resulting Agency Comment [id number] Kirstie Martínez MD LABORATORY Final Result Performing Organization Address [place]/[facility] Co de Phone Number [facility] [address] [place] [address] * VITAMIN D, 25-HYDROXY, TOTAL, IMMUNOASSAY (03/25/2021 9:15 AM EDT) Only the most recent of3 resultswithin the time period is included. Vitamin D, 25-OH, Total 31 30 - 100 ng/mL [facility] Comment: Vitamin D Status 25-OH Vitamin D: Deficiency: <20 ng/mL Insufficiency: 20 - 29 ng/mL Optimal: > or = 30 ng/mL For 25-OH Vitamin D testing on patients on D2-supplementation and patients for whom quantitation of D2 and D3 fractions is required, the QuestAssureD(TM) 25-OH VIT D, (D2,D3), LC/MS/MS is recommended: order code [id number] (patients >2yrs). See Note 1 Note 1 For additional information, please refer to http://Cytoo.coJuvo/faq/TXJ884 (This link is being provided for informational/ educational purposes only.) 03/25/2021 9:15 AM EDT 03/25/2021 3:43 PM EDT us Kirstie Martínez MD LABORATORY Final Result [facility] [address] [place] [address] * (ABNORMAL) LIPID PANEL WITH REFLEX TO DIRECT LDL (03/25/2021 9:15 AM EDT) Only the most recent of3 resultswithin the time period is included. Cholesterol 224(H) <200 mg/dL [facility] HDL Cholesterol 73 > OR = 50 mg/dL [facility] Triglyceride 77 <150 mg/dL [facility] LDL Cholesterol 134(H) mg/dL (calc) [facility] Comment: Reference range: <100 Desirable range <100 mg/dL for primary prevention; <70 mg/dL for patients with CHD or diabetic patients with > or = 2 CHD risk factors. LDL-C is now calculated using the Wilver-Damir calculation, which is a validated novel method providing better accuracy than the Friedewald equation in the estimation of LDL-C. Wilver MICHELLE et al. JUAN. 2013;310(19): 6086-4706 (http://education.coJuvo/faq/MXQ875) CHOL/HDL Ratio 3.1 <5.0 (calc) [facility] Cholesterol Non-HDL 151(H) <130 mg/dL (calc) [facility] Comment: For patients with diabetes plus 1 major ASCVD risk factor, treating to a non-HDL-C goal of <100 mg/dL (LDL-C of <70 mg/dL) is considered a therapeutic option. 03/25/2021 9:15 AM EDT 03/25/2021 3:43 PM EDT Narrative Resulting Agency Comment [id number] Kirstie Martínez MD LABORATORY Final Result Performing Organization Address [facility] Co de Phone Number [facility] [address] [place] [address] * FECAL GLOBIN IMMUNOCHEMICAL TEST (SHALA) (03/25/2021) Fecal Globin Immunochemical Test SEE NOTE [facility] Comment: FECAL GLOBIN BY IMMUNOCHEMISTRY Micro Number: [id number] Test Status: Final Specimen Source: INSURE () FOBT TEST CARD Specimen Quality: Adequate Fecal Globin: Not Detected The specimen receive date on this report reflects the date that [employer] received the test order from the physician. The specimen would have been separately submitted by the patient at a later date. 03/25/2021 03/25/2021 3:4 3 PM EDT Narrative Resulting Agency Comment [id number] Kirstie Martínez MD LABORATORY Final Result Performing Organization Address [facility] de Phone Number [facility] [address] [place] [address] * MAMMOGRAM SCREENING TOMOSYNTHESIS, BILATERAL FC (06/08/2020 2:50 PM EDT) Only the most recent of2 resultswithin the time period is included. Anatomical Region Laterality Modality BREAST Bilateral Mammography Impressions 06/08/2020 4:07 PM EDT : No specific mammographic evidence of malignancy. RECOMMENDATION: - Routine Screening Mammogram in 1 Year for both breasts. BI-RADS: BI-RADS ATLAS category (overall): 1 Negative RESULTS COMMUNICATED TO PATIENT: In a letter Narrative 06/08/2020 4:07 PM EDT EXAMINATION: SCREENING MAMMOGRAM HISTORY: Routine screening mammogram. TECHNIQUE: Digital Bilateral, CAD ,tomosynthesis COMPARISON: 2019 BREAST COMPOSITION: The breasts are heterogeneously dense, which may obscure small masses. FINDINGS:No suspicious dominant mass lesions, clustered microcalcifications, or areas of unexplained architectural distortion are seen in either breast(s). Oni Graham MD IMG MAMMO ORDERABLES Final Res ult * (ABNORMAL) CULTURE, URINE, ROUTINE (04/06/2019 11:04 AM EDT) Only the most recent of2 resultswithin the time period is included. Bacteria culture (Urine) SEE NOTE(A) [facility] Comment: CULTURE, URINE, ROUTINE MICRO NUMBER: [id number] TEST STATUS: FINAL SPECIMEN SOURCE: NOT GIVEN [...] 7:55 PM EDT Narrative Resulting Agency Comment [id number] Beth CARABALLO LABORATORY Final Result Performing Organization Address [facility] de Phone Number [facility] [address] [place] [address] * (ABNORMAL) URINALYSIS, COMPLETE INCLUDES DIPSTICK AND MICROSCOPIC (04/06/2019 11:04 AM EDT) Only the most recent of2 resultswithin the time period is included. Color (Urine) YELLOW YELLOW [facility] Appearance [...] 7:55 PM EDT Narrative Resulting Agency Comment [id number] Beth CARABALLO LAB SAME DAY RESULT Final Resul t Performing Organization Address [facility] Co de Phone Number [facility] [address] [place] [address] * CBC INCLUDES DIFFERENTIAL AND PLATELET COUNT (01/31/2019 4:34 PM EDT) Only the most recent of2 resultswithin the time period is included. WBC 6.6 3.8 - 10.8 Thousand/u L [facility] RBC 4.05 3.80 - 5.10 Million/uL [facility] Hemoglobin 12.6 11.7 - 15.5 g/dL [facility] Hematocrit 37.1 35.0 - 45.0 % [facility] MCV 91.6 80.0 - 100.0 fL [facility] MCH 31.1 27.0 - 33.0 pg [facility] MCHC 34.0 32.0 - 36.0 g/dL [facility] RDW 12.7 11.0 - 15.0 % [facility] PLT 293 140 - 400 Thousand/u L [facility] MPV 9.9 7.5 - 12.5 fL [facility] Neutrophils # 2977 1500 - 7800 cells/uL [facility] Lymphocytes # 2917 850 - 3900 cells/uL [facility] Monocytes # 601 200 - 950 cells/uL [facility] Eosinophils # 73 15 - 500 cells/uL [facility] Basophils # 33 0 - 200 cells/uL [facility] Neutrophils % 45.1 % [facility] Lymphocytes % 44.2 % [facility] Monocytes % 9.1 % [facility] Eosinophils % 1.1 % [facility] Basophils % 0.5 % [facility] 01/31/2019 4:34 PM EDT 02/01/2019 12:39 AM EDT Narrative Resulting Agency Comment [id number] us Oni Graham MD LAB SAME DAY RESULT Final Resu lt Performing Organization Address City/[facility] Co de Phone Number [facility] [address] [place] [address] * THYROID CASCADING REFLEX (01/31/2019 4:34 PM EDT) TSH 2.37 mIU/L [facility] Comment: Reference Range > or = 20 Years 0.40-4.50 Ranges First trimester 0.26-2.66 Second trimester 0.55-2.73 Third trimester 0.43-2.91 01/31/2019 4:34 PM EDT 02/01/2019 12:39 AM EDT Narrative Resulting Agency Comment [id number] us Oni Graham MD LABORATORY Final Result Performing Organization Address City/[facility] Co de Phone Number [facility] [address] [place] [phone] * URINE DIP, REFLEX TO MICROSCOPIC (01/31/2019 4:34 PM EDT) Color (Urine) YELLOW YELLOW [facility] Appearance (Urine) CLEAR CLEAR [facility] Specific gravity (Urine) 1.019 1.001 - 1.035 [facility] pH (Urine) 7.0 5.0 - 8.0 [facility] Glucose (Urine) NEGATIVE NEGATIVE [facility] Bilirubin (Urine) NEGATIVE NEGATIVE [facility] Ketones (Urine) NEGATIVE NEGATIVE [facility] Hemoglobin (Urine) NEGATIVE NEGATIVE [facility] Protein (Urine) NEGATIVE NEGATIVE [facility] Nitrite (Urine) NEGATIVE NEGATIVE [facility] Leukocyte esterase (Urine) NEGATIVE NEGATIVE [facility] 01/31/2019 4:34 PM EDT 02/01/2019 12:39 AM EDT Narrative Resulting Agency Comment [id number] us Oni Graham MD LAB SAME DAY RESULT Final Resu lt [facility] [address] [place] [address] * (ABNORMAL) BASIC METABOLIC PANEL WITH (GFR) (01/31/2019 4:34 PM EDT) Glucose 82 65 - 99 mg/dL [facility] Comment:Fasting reference in terval Urea Nitrogen Blood (BUN) 14 7 - 25 mg/dL [facility] Creatinine 0.56 0.50 - 1.10 mg/dL [facility] EGFR 112 > OR = 60 mL/min/1. 73m2 [facility] GFR () 130 > OR = 60 mL/min/1. 73m2 [facility] BUN/Creatinine Ratio NOT APPLICABLE 6 - 22 (calc) [facility] Sodium 134(L) 135 - 146 mmol/L [facility] Potassium 4.0 3.5 - 5.3 mmol/L [facility] Chloride 99 98 - 110 mmol/L [facility] Carbon dioxide 22 20 - 32 mmol/L [facility] Calcium 9.1 8.6 - 10.2 mg/dL [facility] 01/31/2019 4:34 PM EDT 02/01/2019 12:39 AM EDT Narrative [facility] - 02/01/2019 4:55 AM EDT Please note that this estimated GFR does not include an adjustment for the patient's height or weight, and can therefore, be viewed as reliable only for patients with heights between 60 and 72 . More precise quantification using a 24-hour urine sample or height-based algorithm is recommended for patients outside of this range of height and for those individuals with more precise needs for GFR calculation. Resulting Agency Comment [id number] Oni Graham MD LABORATORY Final Result Performing Organization Address [facility]/ZIP Co de Phone Number [facility] [address] [place] [address] * THINPREP TIS PAP AND HPV RNA, HR E6/E7, TMA (11/03/2017 4:40 PM EST) Clinical information None given [facility] Date last menstrual period [id number] [facility] Date of previous PAP smear NONE GIVEN [facility] Date of previous biopsy NONE GIVEN [facility] Specimen source (Cvx/Vag) Vagina, Cervix, Endocervix [facility] Statement of Adequacy (Cvx/Vag) Satisfactory for evaluation. Endocervical/gonzalez sformation zone component absent. [facility] Cytology, Pap Smear Negative for intraepithelial lesion or malignancy. [facility] Microorganism identified (Cvx/Vag) Shift in vaginal elsie suggestive of bacterial vaginosis. [employer] Cytology study comment (Cvx/Vag) This Pap test has been evaluated with computer assisted technology. [facility] Tunnel Kiln Operator (Cvx/Vag) AMELIA KINNEY(ASCP) CT screening location: [place] [address] [employer] HPV MRNA E6/E7 Not Detected Not Detected [facility] Comment: This test was performed using the APTIMA HPV Assay ([employer] This assay detects E6/E7 viral messenger RNA (mRNA) from 14 high-risk HPV types (16,18,31,33,35,39,45,51,52,56,58,59,66,68). 11/03/2017 4:40 PM EST 11/04/2017 4:38 AM EST Narrative Resulting Agency Comment [id number] Oni Graham MD PATHOLOGY-INTERFACED Final Res ult Performing Organization Address [facility]/ZIP Co de Phone Number [facility] [address] [place] [address] * (ABNORMAL) CULTURE, GENITAL (11/03/2017 4:15 PM EST) Bacteria culture (Genital) SEE NOTE(A) [facility] Comment: CULTURE, GENITAL MICRO NUMBER: [id number] TEST STATUS: FINAL SPECIMEN SOURCE: GENITAL SPECIMEN QUALITY: ADEQUATE RESULT: Scant growth of Group B Streptococcus isolated Beta-hemolytic Streptococci are predictably susceptible to penicillin and other beta-lactams. Susceptibility testing not routinely performed. COMMENT: Normal urogenital elsie also present. 11/03/2017 4:15 PM EST 11/03/2017 10:22 PM EST Narrative Resulting Agency Comment [id number] Oni Graham MD LABORATORY Final Result Performing Organization Address [facility] Co de Phone Number [facility] [address] [place] [address] * GLUCOSE (BLOOD) (10/19/2017 4:05 PM EST) Pathologist [facility] Glucose 89 65 - 99 mg/dL [facility] Comment:Fasting reference in terval 10/19/2017 4:05 PM EST 10/19/2017 10:43 PM EST Narrative Resulting Agency Comment [id number] Oni Graham MD LAB SAME DAY RESULT Final Resu lt Performing Organization Address [facility] Co de Phone Number [facility] [address] [place] [address] * FINGERS - RIGHT (06/25/2011 1:54 PM EDT) [facility] RADIOLOGY REPORT Right fourth finger: Three views. Indication status post injury. No fracture, dislocation or other bone or joint abnormality is seen. The soft tissues are normal. Impression: No bony abnormality. [facility] RAD Anatomical Region Laterality Modality Other 06/25/2011 1:54 PM EDT Narrative 06/25/2011 1:57 PM EDT Reason for Study/History: Indication status post injury. TEST(S) PROCESSED BY [facility] XRAY Emergency Rm Provider [facility] IMAGING-[facility] Final Result * XRAY HAND MIN 3 VWS - RIGHT FC (06/18/2011 4:03 PM EDT) Anatomical Region Laterality Modality UPPER EXTREMITY Radiographic Naomy ging 06/18/2011 3:53 PM EDT Narrative 06/21/2011 2:14 PM EDT Radiographs of the Right Hand: Exam performed 06/18/2011, 3:53 PM local time to the examining facility. There are no prior examinations for comparison. History: pain in rt 4th finger Findings: Three views were obtained. There is no evidence of fracture or dislocation. The joint spaces are well preserved. There is no evidence of degenerative osteophytosis or sclerosis. There is no evidence of cortical erosions to suggest an inflammatory arthritis. There are no soft tissue calcifications or masses. Impression: No fractures or dislocations. Procedure Note Jensen Schultz MD - 06/21/2011 Radiographs of the Right Hand: Exam performed 06/18/2011, 3:53 PM local time to the examining facility. There are no prior examinations for comparison. History: pain in rt 4th finger Findings: Three views were obtained. There is no evidence of fracture or dislocation. The joint spaces are well preserved. There is no evidence of degenerative osteophytosis or sclerosis. There is no evidence of cortical erosions to suggest an inflammatoryarthritis. There are no soft tissue calcifications or masses. Impression: No fractures or dislocations. Rosalba Mason NP IMG XRAY NO CONTRAST ORDERABLES Final Result * ABDOMEN W/DECUB OR ERECT 2 VIE (06/08/2009 11:34 PM EDT) RADIOLOGY REPORT Study: Abdomen, two views. Comparison: None. Findings: There are prominent large bowel loops predominantly in the mid and left upper quadrant. The cecum and ascending colon is filled with moderate fecal matter. There is no free air present. Osseous structures are intact. Impression: Constipation. Distended large bowel loops could be related to ileus. However, bowel obstruction is not excluded. INITIAL REPORT COMPLETED ON: Monday, June 08, 2009 , 23:40:15. INTERPRETING RESIDENT: Gifty Agarwal M.D. Anatomical Region Laterality Modality Other 06/08/2009 11:3 4 PM EDT Narrative 06/09/2009 7:40 AM EDT Ordered by Kirstie Lester Reason for Study/History: TEST(S) PROCESSED BY [facility] XRAY us Unknown Provider [facility] IMAGING-[facility] Final Resul t * CBC 5 PART DIFF (06/08/2009 9:52 PM EDT) WHITE BLOOD COUNT 6.6 3.9 - 11.0 x1000/uL RBC 4.57 3.70 - 5.10 mil/ul Hemoglobin 14.6 11.5 - 15.0 g/dL HCT (HEMATOCRIT) 42.8 34.0 - 44.0 % MCV 94 80 - 100 fL MCH 32 27 - 33 pg MCHC 34 31 - 36 g/dL RDW 13.1 11.4 - 14.4 % PLATELETS 265 150 - 450 x1000/uL MPV 7.3 7.0 - 11.0 fL NEUTROPHIL % 44 42 - 76 % LYMPHOCYTE % 45 14 - 46 % MONOCYTE % 8 4 - 13 % EOSINOPHIL % 2 0 - 7 % BASOPHIL % 1 0 - 3 % NEUTROPHILS # 2.9 1.8 - 7.0 x1000/uL LYMPHOCYTES # 3.0 0.7 - 4.5 x1000/uL MONOCYTES # 0.5 0.1 - 0.8 x1000/uL EOSINOPHILS # 0.1 0.0 - 0.4 x1000/uL BASOPHILS # 0.1 0.0 - 0.2 x1000/uL RBC MORPHOLOGY NORM 06/08/2009 9:52 PM EDT 06/08/2009 9:52 PM EDT Narrative 06/08/2009 10:11 PM EDT Ordered by Emergency Room us Unknown Provider [facility] LABORATORY Final Resul t * (ABNORMAL) LIPASE (06/08/2009 9:52 PM EDT) LIPASE 60(H) 0 - 59 U/L 06/08/2009 9:52 PM EDT 06/08/2009 9:52 PM EDT Narrative 06/08/2009 10:40 PM EDT Ordered by Emergency Room us Unknown Provider [facility] LABORATORY Final Resul t * (ABNORMAL) AMYLASE (06/08/2009 9:52 PM EDT) AMYLASE 102(H) 0 - 99 U/L 06/08/2009 9:52 PM EDT 06/08/2009 9:52 PM EDT Narrative 06/08/2009 10:40 PM EDT Ordered by Emergency Room us Unknown Provider [facility] LABORATORY Final Resul t * (ABNORMAL) HEPATIC FUNCTION PANEL (06/08/2009 9:52 PM EDT) Total Protein 9.0(H) 6.2 - 8.3 g/dL ALBUMIN 4.5 3.5 - 5.5 g/dL BILIRUBIN TOTAL 0.2 0.1 - 1.2 mg/dL BILIRUBIN DIRECT 0.1 0.0 - 0.4 mg/dL ALKALINE PHOSPHATASE 71 25 - 150 U/L ALT (SGPT) 20 0 - 40 U/L AST (SGOT) 24 0 - 40 U/L 06/08/2009 9:52 PM EDT 06/08/2009 9:52 PM EDT Narrative 06/08/2009 10:40 PM EDT Ordered by Emergency Room us Unknown Provider [facility] LABORATORY Final Resul t * BASIC METABOLIC PANEL (06/08/2009 9:52 PM EDT) Glucose 92 Fastin-99 mg/dL BUN 13 5 - 26 mg/dL CREATININE 0.81 0.5 - 1.5 mg/dL BUN/Creatinine Ratio 16 8 - 27 SODIUM 138 135 - 148 mEq/L POTASSIUM 3.6 3.5 - 5.5 mEq/L CHLORIDE 103 96 - 109 mEq/L CARBON DIOXIDE 26 20 - 32 mEq/L CALCIUM 10.2 8.5 - 10.6 mg/dL GLOM FILT RATE, EST >60.0 60.0 - 128.0 mL/min IF -BAHAMIAN >60.0 60.0 - 128.0 mL/min 06/08/2009 9:52 PM EDT 06/08/2009 9:52 PM EDT Narrative 06/08/2009 10:40 PM EDT Ordered by Emergency Room Unknown Provider [facility] LABORATORY Final Resul t * BASIC METABOLIC PANEL (11/09/2008) CALCIUM 9.5 8.6 - 10.2 MG/DL BUN 17 7 - 25 MG/DL CREATININE 0.65 0.50 - 1.20 MG/DL Glucose 82 65 - 99 MG/DL SODIUM 137 135 - 146 MMOL/L POTASSIUM 3.9 3.5 - 5.3 MMOL/L CHLORIDE 104 98 - 110 MMOL/L CARBON DIOXIDE 24 21 - 33 MMOL/L 11/09/2008 11/09/2008 8:1 7 PM EST Yesenia Modi MD LAB SAME DAY RESULT Final Resul t * (ABNORMAL) CBC 5 PART DIFF (11/09/2008) WHITE BLOOD COUNT 6.4 3.8 - 10.8 THOUS/UL RBC 4.29 3.80 - 5.10 MIL/UL Hemoglobin 13.3 11.7 - 15.5 G/DL HCT (HEMATOCRIT) 40.2 35.0 - 45.0 % MCV 93.6 80.0 - 100.0 FL MCH 31.0 27.0 - 33.0 PG MCHC 33.2 32.0 - 36.0 G/DL BAND % 0 0 - 5 % NEUTROPHIL % 42(L) 48 - 75 % LYMPHOCYTE % 48(H) 17 - 40 % MONOCYTE % 8 0 - 14 % EOSINOPHIL % 1 0 - 5 % BASOPHIL % 1 0 - 3 % ATYPICAL LYMPHOCYTE % 0 0 - 5 % PLATELETS 268 140 - 400 THOUS/UL BANDS # 0 0 - 750 CELLS/MCL NEUTROPHILS # 2688 1500 - 7800 CELLS/MCL LYMPHOCYTES # 3072 850 - 3900 CELLS/MCL MONOCYTES # 512 200 - 950 CELLS/MCL EOSINOPHILS # 64 15 - 550 CELLS/MCL BASOPHILS # 64 0 - 200 CELLS/MCL ATYPICAL LYMPHOCYTES # 0 0 - 200 CELLS/MCL RDW 13.3 11.0 - 15.0 % MPV 7.9 7.5 - 11.5 FL 11/09/2008 11/09/2008 8:1 7 PM EST Yesenia Modi MD LAB SAME DAY RESULT Final Resul t * XRAY CHEST 2 VIEWS PA & LAT (01/14/2007 4:50 PM EDT) [facility] RADIOLOGY REPORT Chest, 2 views: No previous. The cardiomediastinal contour, pulmonary vasculature, and lung wong are within normal limits. Pleural reflections are clear and bony structures are unremarkable. IMPRESSION: No active disease. [facility] (CLIA# [id number]) Anatomical Region Laterality Modality Other 01/14/2007 4:50 PM EDT Narrative 01/15/2007 11:23 AM EDT Reason for Study/History: + ppd TEST(S) PROCESSED BY [facility] Katja Allison MD GENERAL IMAGING- OTHER Final Result * HEPATITIS B SURFACE ANTIBODY, QUANTITATIVE (01/14/2007 3:30 PM EDT) [facility] HEPATITIS B SURFACE AB QUANTITATIVE 58 MIU/ML [facility] (CLIA# [id number]) Comment: < 10MIU/ML PATIENT DOES NOT HAVE IMMUNITY TO HEPATITIS B VIRUS. > OR EQUAL TO 10 MIU/ML PATIENT HAS IMMUNITY TO HEPATITIS B VIRUS. 01/14/2007 3:30 PM EDT 01/16/2007 2:16 AM EDT Katja Allison MD LABORATORY Final Result [facility] (CLIA# [id number]) [address] [place] [address] * VARICELLA IGG AB (01/14/2007 3:30 PM EDT) [facility] VARICELLA ZOSTER IGG 1.3 (IMMUNE) ISR [facility] (CLIA# [id number]) Comment: <=0.90 NEGATIVE 0.91-1.09 EQUIVOCAL >=1.10 POSITIVE A POSITIVE RESULT INDICATES THAT THE PATIENT HAS ANTIBODY TO VZV. IT DOES NOT DIFFERENTIATE BETWEEN AN ACTIVE OR PAST INFECTION. THE CLINICAL DIAGNOSIS MUST BE INTERPRETED IN CONJUNCTION WITH THE CLINICAL SIGNS AND SYMPTOMS OF THE PATIENT. VARICELLA-ZOSTER IGG, EIA RELIABLY MEASURES IMMUNITY DUE TO PREVIOUS INFECTION, BUT IS UNSUITABLE FOR DETECTION OF POST-VACCINATION IMMUNE STATUS. 01/14/2007 3:30 PM EDT 01/16/2007 2:16 AM EDT Result [facility] Katja Allison MD LABORATORY Final Result Performing Organization Address City/[facility]/ZIP Co de Phone Number [facility] (CLIA# [id number]) [address] [place] [address] * RUBEOLA IGG AB (01/14/2007 3:30 PM EDT) RUBEOLA IGG AB 3.2 (IMMUNE) SEE BELOW [facility] (CLIA# [id number]) Comment:REFERENCE: 1.1 OR > INDICATES ANTIBODY 01/14/2007 3:30 PM EDT 01/16/2007 2:16 AM EDT Katja Allison MD LABORATORY Final Result Performing Organization Address [facility] Co de Phone Number [facility] (CLIA# [id number]) [address] [place] [address] * RUBELLA IGG AB (01/14/2007 3:30 PM EDT) RUBELLA IGG AB 5.44 (IMMUNE) SEE BELOW [facility] (CLIA# [id number]) Comment: REFERENCE: 1.1 OR > INDICATES ANTIBODY THE PRESENCE OF RUBELLA IGG ANTIBODY SUGGESTS A CURRENT OR PAST INFECTION OR IMMUNIZATION WITH RUBELLA VIRUS. 01/14/2007 3:30 PM EDT 01/16/2007 2:16 AM EDT Katja Allison MD LABORATORY Final Result Performing Organization Address City/[facility] Co de Phone Number [facility] (CLIA# [id number]) [address] [place] [address] * MUMPS ANTIBODY (IGG) (01/14/2007 3:30 PM EDT) MUMPS VIRUS AB.IGG 4.9 (IMMUNE) SEE BELOW [facility] (CLIA# [id number]) Comment:REFERENCE: 1.1 OR > INDICATES ANTIBODY 01/14/2007 3:30 PM EDT 01/16/2007 2:16 AM EDT Katja Allison MD LABORATORY Final Result Performing Organization Address City/State/[facility] Co de Phone Number [facility] (CLIA# [id number]) [address] [place] [address] Visit Diagnoses Diagnosis Start Date Health examination of defined subpopulation 10/02/1998 Vaginitis and vulvovaginitis Vaginitis and vulvovaginitis, unspecified 02/23/2007 Routine gynecological examination 03/18/2007 Vaginitis and vulvovaginitis Vaginitis and vulvovaginitis, unspecified 05/19/2007 Vaginitis and vulvovaginitis Vaginitis and vulvovaginitis, unspecified 05/19/2007 Routine gynecological examination 05/19/2007 Vaginitis and vulvovaginitis Vaginitis and vulvovaginitis, unspecified 09/27/2007 Vaginitis and vulvovaginitis Vaginitis and vulvovaginitis, unspecified 09/27/2007 Vaginitis and vulvovaginitis Vaginitis and vulvovaginitis, unspecified 03/15/2008 Vaginitis and vulvovaginitis Vaginitis and vulvovaginitis, unspecified 04/10/2008 Routine gynecological examination 05/24/2008 Routine gynecological examination 05/24/2008 Routine general medical examination at a health care facility 11/09/2008 Routine general medical examination at a health care facility 11/09/2008 Need for prophylactic vaccination with tetanus-diphtheria (Td) 11/09/2008 Routine gynecological examination 05/30/2009 Vaginitis and vulvovaginitis Vaginitis and vulvovaginitis, unspecified 05/30/2009 Routine gynecological examination 05/30/2009 Abdominal colic Colic 06/08/2009 Constipation Unspecified constipation 06/08/2009 Abdominal pain, right lower quadrant 06/08/2009 Abdominal pain, left lower quadrant 06/08/2009 Contraception, counseling NEC Other general counseling and advice for contraceptive management 09/12/2009 Routine general medical examination at a health care facility 01/31/2010 Screening for hyperlipidemia Screening for lipoid disorders 01/31/2010 Constipation Unspecified constipation 01/31/2010 Routine gynecological examination 06/05/2010 Routine gynecological examination 06/05/2010 Reactive depression (situational) Dysthymic disorder 12/18/2010 Routine gynecological examination 06/11/2011 Vaginitis and vulvovaginitis Vaginitis and vulvovaginitis, unspecified 06/11/2011 Pain in finger of right hand Pain in limb 06/18/2011 Pain in finger of right hand Pain in limb 06/18/2011 Injury of ring finger Injury, other and unspecified, finger 06/24/2011 Sprain and strain of wrist Sprain of wrist, unspecified site 06/25/2011 Pain in limb 06/25/2011 Accident - crushed by object Caught accidentally in or between objects 06/25/2011 Injury, finger Injury, other and unspecified, finger 06/25/2011 Sprain and strain of hand Sprain of hand, unspecified site 06/25/2011 Mallet finger 07/08/2011 Mallet finger 07/08/2011 Mallet finger 09/02/2011 Mallet finger 09/15/2011 Low back pain Lumbago 10/21/2011 Pain of lower extremity Pain in limb 01/02/2015 Knee pain Pain in joint, lower leg 01/04/2015 Screening for deficiency anemia Screening for other and unspecified deficiency anemia 10/19/2017 Screening for diabetes mellitus 10/19/2017 Screening for hyperlipidemia Screening for lipoid disorders 10/19/2017 Screening for endocrine, nutritional, metabolic and immunity disorder Screening for other and unspecified endocrine, nutritional, metabolic, and immunity disorders 10/19/2017 Neutropenia, unspecified type 10/19/2017 Vitamin D deficiency 10/19/2017 Screening for deficiency anemia Screening for other and unspecified deficiency anemia 10/19/2017 Screening for endocrine, nutritional, metabolic and immunity disorder Screening for other and unspecified endocrine, nutritional, metabolic, and immunity disorders 10/19/2017 Routine history and physical examination of adult Routine general medical examination at a health care facility 10/19/2017 Screening for diabetes mellitus 10/19/2017 Screening for hyperlipidemia Screening for lipoid disorders 10/19/2017 Subacute vaginitis 11/03/2017 Screening for malignant neoplasm of cervix Screening for malignant neoplasm of the cervix 11/03/2017 Subacute vaginitis 11/03/2017 Encounter for gynecological examination with abnormal finding Routine gynecological examination 11/03/2017 Screening for malignant neoplasm of cervix Screening for malignant neoplasm of the cervix 11/03/2017 Burning with urination Dysuria 01/05/2018 Burning with urination Dysuria 01/05/2018 Screening for hyperlipidemia Screening for lipoid disorders 01/31/2019 Other neutropenia 01/31/2019 Screening for nephropathy 01/31/2019 Vitamin D deficiency 01/31/2019 Screening breast examination Breast screening, unspecified 01/31/2019 Screening for diabetes mellitus 01/31/2019 Other neutropenia 01/31/2019 Vitamin D deficiency 01/31/2019 Screening for nephropathy 01/31/2019 Obesity, unspecified classification, unspecified obesity type, unspecified whether serious comorbidity present 01/31/2019 Screening breast examination Breast screening, unspecified 01/31/2019 Routine history and physical examination of adult Routine general medical examination at a health care facility 01/31/2019 Encounter for gynecological examination without abnormal finding Routine gynecological examination 01/31/2019 Screening for diabetes mellitus 01/31/2019 Screening for hyperlipidemia Screening for lipoid disorders 01/31/2019 Need for vaccination Need for prophylactic vaccination and inoculation against unspecified single disease 01/31/2019 Screening breast examination Breast screening, unspecified 02/19/2019 Urinary frequency 04/06/2019 Burning with urination Dysuria 04/06/2019 Burning with urination Dysuria 04/06/2019 Urinary frequency 04/06/2019 Acute UTI Urinary tract infection, site not specified 05/16/2019 Breast cancer screening by mammogram 06/08/2020 Hyperlipidemia, unspecified hyperlipidemia type 03/25/2021 Irregular menses Irregular menstrual cycle 03/25/2021 Screening for colon cancer Special screening for malignant neoplasms, colon 03/25/2021 Screening for diabetes mellitus 03/25/2021 Encounter for screening for malignant neoplasm of breast, unspecified screening modality 03/25/2021 Irregular menses Irregular menstrual cycle 03/25/2021 Vitamin D deficiency 03/25/2021 Hyperlipidemia, unspecified hyperlipidemia type 03/25/2021 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 03/26/2021 History of BCG vaccination Other specified conditions influencing health status 03/26/2021 Pain and swelling of right lower leg 05/13/2021 Superficial thrombophlebitis of right leg Phlebitis and thrombophlebitis of superficial vessels of lower extremities 05/13/2021 Superficial thrombophlebitis of right leg Phlebitis and thrombophlebitis of superficial vessels of lower extremities 05/23/2021 Varicose veins of both lower extremities with inflammation 05/23/2021 Care Teams Stock 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
--- OUTSIDE RECORDS SUMMARY | 2025-08-17 15:14 | XMS_ITS | Encounter Summary ---
Author Organization [facility] Address [address] [place] [address] Care Team Providers Care Box Car Bracer Name Role Phone Oni Graham MD Primary Care Provider Kirstie Martínez MD Primary Care Provider [phone] Unknown Pcp, Non g Primary Care Provider Unava Zabrina Flores MD Primary Care Provider [phone] Encounter Details Date Type Department Care Team (Late st Contact Info) Description 01/05/2018 Orders Only [facility] Primary Care Internal Medicine [address] [place] [address] [address] [place] [id number] Oni Graham MD [facility] [address] [place] [id number] Social History Tobacco Use Types Packs/Day Years [...] 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 Recommend Macrobid 100 mg twice daily for 7 days documented in this encounter Plan of Treatment Not on file documented as of this encounter Procedures * Due to [place] perfect law, this organization might not be sharing negative HIV tests. Procedure Name Priority Date/Time Associated Diagnosis Comments CULTURE, URINE, ROUTINE Routine 01/05/2018 2:55 PM EDT Burning with urination URINALYSIS, COMPLETE INCLUDES DIPSTICK AND MICROSCOPIC Routine 01/05/2018 2:55 PM EDT Burning with urination documented in this encounter Results * Due to [place] perfect law, this organization might not be sharing negative HIV tests. * (ABNORMAL) URINALYSIS, COMPLETE INCLUDES DIPSTICK AND MICROSCOPIC (01/05/2018 2:55 PM EDT) Color (Urine) YELLOW YELLOW [facility] Appearance (Urine) CLOUDY(A) CLEAR [facility] Specific gravity (Urine) 1.008 1.001 - 1.035 [facility] pH (Urine) 7.0 5.0 - 8.0 [facility] Glucose (Urine) NEGATIVE NEGATIVE [facility] Bilirubin (Urine) NEGATIVE NEGATIVE [facility] Ketones (Urine) NEGATIVE NEGATIVE [facility] Hemoglobin (Urine) TRACE(A) NEGATIVE [facility] Protein (Urine) NEGATIVE NEGATIVE [facility] Nitrite (Urine) NEGATIVE NEGATIVE [facility] Leukocyte esterase (Urine) 3+(A) NEGATIVE [facility] WBC (Urine) > OR = 60(A) < OR = 5 /HPF [facility] RBC (Urine Sed) NONE SEEN < OR = 2 /HPF [facility] Epithelial cells.squamous (Urine sed) NONE SEEN < OR = 5 /HPF [facility] Bacteria (Urine) NONE SEEN NONE SEEN /HPF [facility] Hyaline casts (Urine sed) NONE SEEN NONE SEEN /LPF [facility] 01/05/2018 2:55 PM EDT 01/06/2018 3:23 AM EDT Narrative Resulting Agency Comment [id number] us Oni Graham MD LAB SAME DAY RESULT Final Resu lt [facility] [address] [place] [address] * (ABNORMAL) CULTURE, URINE, ROUTINE (01/05/2018 2:55 PM EDT) Bacteria culture (Urine) SEE NOTE(A) [facility] Comment: CULTURE, URINE, ROUTINE MICRO NUMBER: [id number] TEST STATUS: FINAL SPECIMEN SOURCE: URINE SPECIMEN QUALITY: ADEQUATE RESULT: Greater than 100,000 CFU/mL of Escherichia coli E.coli INT WILL AMOX/CLAVULANATE S 4 AMPICILLIN R >=32 AMP/SULBACTAM I 16 CEFAZOLIN NR <=4 2 CEFEPIME S <=1 CEFTRIAXONE S <=1 CIPROFLOXACIN S <=0.25 ERTAPENEM S <=0.5 GENTAMICIN S <=1 IMIPENEM S <=0.25 LEVOFLOXACIN S <=0.12 NITROFURANTOIN S <=16 PIP/TAZOBACTAM S <=4 TOBRAMYCIN S <=1 TRIMETHOPRIM/SULFA R >=320 S=Susceptible I=Intermediate R=Resistant * = Not Tested [...] cefdinir, cefpodoxime, cefprozil, cefuroxime, cephalexin and loracarbef. 01/05/2018 2:55 PM EDT 01/06/2018 3:23 AM EDT Narrative Resulting Agency Comment [id number] us Oni Graham MD LABORATORY Final Result [facility] [address] [place] [address] documented in this encounter Visit Diagnoses Diagnosis Burning with urination Dysuria documented in this encounter Care Teams Box Car Bracer Relationship Specialty Start Date End Date Oni Graham MD PCP - General 10/06/17 09/13/20 Kirstie Martínez MD [address] [place] [id number] PCP - General 09/14/20 02/22/22 Unknown Pcp, Non [facility] PCP - General 02/23/22 02/25/22 Zabrina Price MD [address] [address] PCP - General Family Medicine 02/26/22 documented as of this encounter
--- OUTSIDE RECORDS SUMMARY | 2025-08-17 15:14 | XMS_ITS | Encounter Summary ---
Author Organization [facility] Address [address] [place] [address] Care Team Providers Care Ring Attacher Name Role Phone Yesenia Modi MD Primary Care Provider [phone] Oni Graham MD Primary Care Provider [phone] Kirstie Martínez MD Primary Care Provider [phone] Unknown Pcp, Non g Primary Care Provider Unava Zabrina Flores MD Primary Care Provider [phone] Encounter Details Date Type Department Care Team (Late st Contact Info) Description 11/09/2008 Orders Only [facility] [address] [place] [phone] Yesenia Modi MD [address] [place] [id number] Social History Tobacco Use Types Packs/Day Years Used Date Smoking Tobacco: Never Alcohol Use Standard Drinks/Week Comments Yes 0 (1 standard drink = 0.6 oz pur e alcohol) OCC Comments No Sex and Gender Information Value Date Recorded Sex Assigned at Not on file Legal Sex Female 9:06 AM EDT Gender Identity Not on file Sexual Orientation Not on file 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 Procedure Name Priority Date/Time Associated Diagnosis Comments BASIC METABOLIC PANEL Routine 11/09/2008 Routine General Medical Examination at a Health Care Facility CBC 5 PART DIFF Routine 11/09/2008 Routine General Medical Examination at a [facility] Facility documented in this encounter Results * Due to [place] state law, this organization might not be sharing negative HIV tests. * BASIC METABOLIC PANEL (11/09/2008) CALCIUM 9.5 [...] [place] 11/09/2008 11/09/2008 8:1 7 PM EST us Yesenia Modi MD LAB SAME DAY RESULT Final Resul t documented in this encounter Visit Diagnoses Diagnosis Routine general medical examination at a health care facility documented in this encounter Care Teams Ring Attacher Relationship Specialty Start Date End Date Yesenia Modi MD PCP - General 04/11/08 03/18/16 Oni Graham MD PCP - General 10/06/17 09/13/20 Kirstie Martínez MD [address] [place] [id number] PCP - General 09/14/20 02/22/22 Unknown Pcp, Non Rmg PCP - General 02/23/22 02/25/22 Zabrina Price MD [address] [address] PCP - General Family Medicine 02/26/22 documented as of this encounter
--- OUTSIDE RECORDS SUMMARY | 2025-08-17 15:14 | XMS_ITS | Clinical Summary ---
Author Organization [facility] Address [address] [place] [phone] Phone Care Team Providers Care Subway Operator Name Role Phone Zabrina Price MD Primary Care Provider Allergies Active Allergy Reactions Criticality Noted Date Comments Hydrocodone-Acetamino phen Nausea And Vomiting 10/22/2011 Vomiting, ok with Tylenol Medications therapeutic multivitamin tablet Take by mouth daily. Active cranberry fruit 400 mg Tab Take 400 mg by mouth daily. Active bran/gum/fib/tracey/ psyl/kelp/pec (FIBER 6 ORAL) Take by mouth. Active Active Problems Problem Noted Date Diagnosed Date Hyperlipidemia 03/25/2021 Overview (05/06/2022): 03/25/21 update lipids - diet and lifestyle recs Irregular menses 03/25/2021 Overview (05/06/2022): 03/25/21 irregular menses x 6 months, with associated hot flushes. Suspecting perimenopause. 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 Not on sundar e 02/07/2023 Are you concerned about learning? Not on file 02/07/2023 No 02/07/2023 No 02/07/2023 Digital Access Answer Date Recorded No 03/08/2023 No 03/08/2023 Reliable internet access at home? Not on file 03/08/2023 Device with a working camera? Not on file Intimate Partner Violence Answer Date R ecorded Are you denied basic needs s uch as food, clothing, or medical care? No 11/18/2023 In the past 12 months have y ou been in a relationship with a person who hurts, threatens, or tries to control you? No 11/18/2023 Are you denied basic needs s uch as food, clothing, or medical care? No 11/18/2023 In the past 12 months have y ou been in a relationship with a person who hurts, threatens, or tries to control you? No 11/18/2023 Comments Unknown Sex and Gender Information Value Date Recorded Sex Assigned at Female 08/19/2023 6:50 AM EST Legal Sex Female 9:09 AM EDT Gender Identity Female 08/19/2023 6:50 AM EST Sexual Orientation Not on file Last Filed Vital Signs Vital Sign Reading Time Taken Comments Blood Pressure 134/88 11/18/2023 9:30 PM EST Pulse 84 11/18/2023 9:30 PM EST Temperature 36.2 C (97.2 F) 11/18/2023 9:17 PM EST Respiratory Rate 16 11/18/2023 9:30 PM EST Oxygen Saturation 98% 11/18/2023 9:39 PM EST Inhaled Oxygen Concentration - - Weight 97.5 kg (215 lb) 11/18/2023 9:30 PM EST Height 170.2 cm (5' 7 ) 11/18/2023 9:30 PM EST Body Mass Index 33.67 11/18/2023 9:30 PM EST Plan of Treatment Health Maintenance Due Date Last Done Comments LIPID PANEL 1972 DEPRESSION SCREENING 1984 HEPATITIS C SCREENING 1990 HIV ONE-TIME SCREENING (18-65 YEARS) 1990 PAP SMEAR 1993 SCREENING FOR DIABETES 2007 COLOGUARD 2017 COLONOSCOPY 2017 COLORECTAL CANCER SCREENING 2017 FIT TEST 2017 FOBT 2017 SIGMOIDOSCOPY 2017 VIRTUAL COLONOSCOPY 2017 PNEUMOCOCCAL VACCINES (50+ years) (1 of 1 - PCV) 2022 ZOSTER VACCINES (1 of 2) 2022 MAMMOGRAM 10/07/2023 10/07/2021, 05/13, 02/19/2019 INFLUENZA VACCINE (#1) 2025 , 07/09/2022, 07/01/2021, Additional history exists COVID-19 VACCINE ( - 2024- season) 2025 10/10/2021, 11/16/2020, 10/19/2020 Adult Td,Tdap Booster 01/31/2029 01/31/2019 RSV VACCINE (1 - 1-dose 75+ series) 2047 SMOKING STATUS SCREENING (Once After 26 Yrs) Completed 11/18/2023 HEPATITIS A VACCINES Aged Out No long er eligible based on patient's age to complete this topic HIB VACCINES Aged Out No longer eligi ble based on patient's age to complete this topic MENINGOCOCCAL VACCINES (ACWY) Aged Out No longer eligible based on patient's age to complete this topic MENINGOCOCCAL VACCINES (B) Aged Out N o longer eligible based on patient's age to complete this topic Medical Devices Not on file Insurance [facility] [employer] [address] [place] [place] [address] [place] [place] [address] [employer] [place] [address] [place] [address] [place] [address] [place] [address] [place] [place] [address] [employer]OC[employer] Care Teams Subway Operator Relationship Specialty Start Date End Date Zabrina Price MD [address] [place] [phone] [email or web address] PCP - General Family Medicine 05/06/22 Additional Source Comments The information contained in this document represents components of the legal health record. It is not the complete legal health record.[facility]
== END 2025-08-17 13:06 | disposition home or self-care (01) ==
PROVIDERS: PCP Internal Medicine; Visit Provider Obstetrics & Gynecology
DX: N95.0 Postmenopausal bleeding (principal)
CPT/HCPCS: 99203

== ENCOUNTER 2025-08-26 08:44 | Outpatient (REF) | payer OTHER, SELFPAY ==
--- NOTE | ~2025-08-26 | US_ITS ---
CLINICAL HISTORY: N95.0 - Postmenopausal bleeding Ultrasound of the female pelvis Comparison: None provided Technique: Grayscale ultrasound with assistance of color Doppler. Transabdominal scanning performed for overall anatomy. Transvaginal scanning performed for better anatomic delineation. Findings: Anteverted uterus is enlarged with distorted lobulated external contour, measures 14.1 x 7.9 x 14.7 cm. Heterogeneous myometrium, multiple fibroids are visualized, the dominant 3 fibroids are: 5.5 x 4.5 x 6.5 cm fibroid centered in the posterior uterine body myometrium. 5.0 x 4.7 x 4.7 cm subserosal fibroid of the left anterior body. 3.9 x 3.1 x 3.6 cm intramural fibroid in the right fundus. The endometrium is not seen, likely distorted or displaced by the fibroid. Unremarkable cervix. Ovaries are not visualized, no adnexal mass. No free fluid in the pelvis. Impression: 1. Enlarged uterus with multiple fibroids. 2. Endometrium and ovaries are not seen. This document has been electronically signed by: Kristin Abbott MD on 08/27/2025 17:00:39
== END 2025-08-26 08:45 | disposition home or self-care (01) ==
LOC: HO.US 08:44
PROVIDERS: PCP Internal Medicine; Visit Provider Obstetrics & Gynecology
DX: N95.0 Postmenopausal bleeding (principal)
CPT/HCPCS: 76830; 76856

== ENCOUNTER → 2025-08-26 08:48 | Outpatient (BNV) | payer OTHER, SELFPAY | PROVIDERS: PCP Internal Medicine; Visit Provider Radiology Diagnostic Radiology | DX: D25.9 Leiomyoma of uterus, unspecified (principal); N85.2 Hypertrophy of uterus; N95.0 Postmenopausal bleeding | CPT/HCPCS: 76830; 76856 ==

== ENCOUNTER 2025-09-26 07:56 | Outpatient (AMB) | payer OTHER, SELFPAY ==
--- NOTE | 2025-09-26 07:59 | A.OFFVIS_ITS ---
Vital Signs 09/26/25 08:00 Height 5 ft 7 in Weight 233 lb BMI 36.5 BP 120/78 Intake Visit Reasons: U/S f/u EMB Clean Out Driller Helper Required: No Information Interpreted: non-clinical & clinical Sports Physiologist: Sports Physiologist Present Accompanied by: Self / Same As Patient Allergies acetaminophen (From Vicodin) Allergy (Intermediate, Verified 09/26/25 08:12) Nausea and Vomiting hydrocodone (From Vicodin) Allergy (Intermediate, Verified 09/26/25 08:12) Nausea and Vomiting Is last menstrual period known: Yes Last menstrual period: 08/09/20 Post menopausal: Yes Patient : No Do you need a note to return to daycare/school/sports/work: Yes (for surgery on thursday) HPI Comments Details: Presenting for ultrasound follow-up for postmenopausal bleeding. Pelvic ultrasound showed the following: Anteverted uterus is enlarged with distorted lobulated external contour, measures 14.1 x 7.9 x 14.7 cm. Heterogeneous myometrium, multiple fibroids are visualized, the dominant 3 fibroids are: 5.5 x 4.5 x 6.5 cm fibroid centered in the posterior uterine body myometrium. 5.0 x 4.7 x 4.7 cm subserosal fibroid of the left anterior body. 3.9 x 3.1 x 3.6 cm intramural fibroid in the right fundus. The endometrium is not seen, likely distorted or displaced by the fibroid. Unremarkable cervix. Ovaries are not visualized, no adnexal mass. No free fluid in the pelvis. Impression: 1. Enlarged uterus with multiple fibroids. 2. Endometrium and ovaries are not seen. [facility] Family History Mother High blood pressure determined by examination Father No problems noted. Female Reproductive History Menstrual Age of Menarche: 15 Date of last menstrual period: 08/09/20 Total pregnancies: 2 Full term: 2 Review of Systems Const All systems reviewed & are unremarkable except as noted in HPI and below Reports as per HPI and Reports no additional complaints Card Reports as per HPI and Reports no additional complaints Resp Reports as per HPI and Reports no additional complaints GI Reports no additional complaints Reports no additional complaints Physical Exam Vital Signs: Last Vital Signs BP 120/78 09/26/25 08:00 BMI result Body Mass Index 36.5 Const General: cooperative, healthy appearing and comfortable Resp Effort & Inspection: normal respiratory effort Auscultation: clear to auscultation bilaterally Percussion: percussion normal Cardio Palpation: normal PMI Rate: regular rate Rhythm: regular rhythm Heart sounds: no murmurs and no rubs Peripheral pulses: Peripheral pulses 2+ throughout GI Inspection: Yes normal to inspection Palpation (GI): Soft to palpation, nontender, no guarding, not rigid and No hepatosplenomegaly present Percussion: Yes normal to percussion Auscultation: normal bowel sounds Rectal Exam - Female: deferred Assessment & Plan Assessment & Plan (1) Postmenopausal bleeding: Code(s): N95.0 - Postmenopausal bleeding Category: Medical Plan: Discussed with the patient the pelvic ultrasound findings, the endometrial stripe was not seen. Recommended to the patient that the next step is an endometrial sampling via hysteroscopy D&C possible polypectomy versus endomet rial biopsy to r/o endometrial pathology including hyperplasia or cancer. All the pros and cons risks and benefits of each approach were discussed with the patient, endometrial biopsy being less invasive, office procedure with less sensitivity and inability diagnose a polyp and removal versus hysteroscopy done under anesthesia more invasive more sensitive to endometrial cancer and possibility of diagnosing and endometrial polyp with the possibility of polypectomy. All questions were answered pt verbalized understanding and decided to proceed with hysteroscopy D&C possible polypectomy/myomectomy. Discussed with the patient the procedure , all benefits and risks including but not limited to inability to complete the procedure , insufficient endometrial tissue for a complete evaluation of the endometrial cavity , bleeding, infection, possible need for blood transfusion with all its risk ( HIV,syphilis, Hepatitis, anaphylaxis shock, others..), injury to bladder, rectum, possible need for laparoscopy/laparotomy or hysterectomy. The patient verbalized understanding and signed the consent. Instructions given the patient to stay NPO after midnight the day prior to the procedure and to take only losartan with a small sip of water the morning of the surgical procedure and to schedule a 2 week postoperative appointment (2) Uterine myoma: Code(s): D25.9 - Leiomyoma of uterus, unspecified Category: Medical Plan: Discussed with the patient the findings on pelvic ultrasound & the risk of myosarcoma; in addition reviewed with the patient that malignancy and pre malignancy cannot be ruled out without hysterectomy for pathological evaluation ; furthermore, explained to the patient the limitation of pelvic ultrasound and endometrial biopsy in the setting. Discussed with the patient the typical symptoms that are caused by myomas including but not limited to pelvic pain, pressure symptoms, abnormal uterine bleeding. In addition discussed with the patient options of treatment for myomas including: Serial ultrasounds periodically to follow-up on the size of the myoma while targeting the treatment against fibroids related symptoms ( control pills, Mirena IUD, progesterone treatment, GnRH agonist/antagonist, uterine artery embolization or endometrial ablation) versus surgical treatment including hysterectomy and or myomectomy. All pros and cons, risks and benefits of all options were discussed with the patient. The patient understands that delay in surgical treatment in case of myosarcoma can affect her prognosis, after further discussion, the patient decided to think about it and get back to us next visit Coding Level of Care Code Est Pt Level 3 (11985) Diagnoses Postmenopausal bleeding N95.0 Uterine myoma D25.9
[2025-09-26 08:00] VITALS: BP 120/78; BMI 36.5
--- OUTSIDE RECORDS SUMMARY | 2025-09-26 08:05 | XMS_ITS | Encounter Summary ---
Author Organization [facility] Address [address] [place] [address] Care Team Providers Care Tool Room Gear Machine Operator Name Role Phone Oni Graham MD Primary Care Provider Kirstie Martínez MD Primary Care Provider [phone] Unknown Pcp, Non g Primary Care Provider Unava ilZabrina Craig MD Primary Care Provider [phone] Encounter Details Date Type Department Care Team (Late st Contact Info) Description 04/06/2019 Orders Only [facility] Primary Care Internal Medicine [address] [place] [address] [address] [place] [id number] Oni Graham MD [facility] [address] [place] [address] Social History Tobacco Use Types Packs/Day Years [...] 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 Procedure Name Priority Date/Time Associated Diagnosis Comments CULTURE, URINE, ROUTINE Routine 04/06/2019 11:04 AM EDT Urinary frequency Burning with urination URINALYSIS, COMPLETE INCLUDES DIPSTICK AND MICROSCOPIC Routine 04/06/2019 11:04 AM EDT Urinary frequency Burning with urination documented in this encounter Results * Due to [place] [employer] law, this organization might not be sharing [...] 7:55 PM EDT Narrative Resulting Agency Comment [id number] [facility] SAME DAY RESULT Final Res ult [facility] [address] [place] [address] * (ABNORMAL) CULTURE, URINE, ROUTINE (04/06/2019 11:04 AM EDT) Bacteria culture (Urine) SEE NOTE(A) [facility] Comment: CULTURE, URINE, ROUTINE MICRO NUMBER: [id number] TEST STATUS: FINAL SPECIMEN SOURCE: NOT GIVEN [...] 7:55 PM EDT Narrative Resulting Agency Comment [id number] [facility] Final Result Performing Organization Address City/State/[facility] Co de Phone Number [facility] [address] [place] [address] documented in this encounter Visit Diagnoses Diagnosis Urinary frequency Burning with urination Dysuria documented in this encounter Care Teams Tool Room Gear Machine Operator Relationship Specialty Start Date End Date Oni Graham MD PCP - General 10/06/17 09/13/20 Kirstie Martínez MD [address] [place] [id number] PCP - General 09/14/20 02/22/22 Unknown Pcp, Non Rmg PCP - General 02/23/22 02/25/22 Zabrina Price MD [address] [address] PCP - General Family Medicine 02/26/22 documented as of this encounter
--- OUTSIDE RECORDS SUMMARY | 2025-09-26 08:05 | XMS_ITS | Encounter Summary ---
Author Organization [facility] Address [address] [place] [address] Care Team Providers Care Student Finance Advisor Name Role Phone Oni Graham MD Primary Care Provider Kirstie Martínez MD Primary Care Provider [phone] Unknown Pcp, Non g Primary Care Provider Unava Zabrina Flores MD Primary Care Provider [phone] Encounter Details Date Type Department Care Team (Late st Contact Info) Description 01/05/2018 Orders Only [facility] Primary Care Internal Medicine [address] [place] [address] [address] [place] [phone] Oni Graham MD [facility] [address] [place] [address] Social History Tobacco Use Types Packs/Day Years [...] 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 Recommend Macrobid 100 mg twice daily for 7 days documented in this encounter Plan of Treatment Not on file documented as of this encounter Procedures * Due to [place] [employer] law, this organization might not be sharing negative HIV tests. Procedure Name Priority Date/Time Associated Diagnosis Comments CULTURE, URINE, ROUTINE Routine 01/05/2018 2:55 PM EDT Burning with urination URINALYSIS, COMPLETE INCLUDES DIPSTICK AND MICROSCOPIC Routine 01/05/2018 2:55 PM EDT Burning with urination documented in this encounter Results * Due to [place] [employer] law, this organization might not be sharing [...] 3:23 AM EDT Narrative Resulting Agency Comment [id number] us Oni Graham MD LAB SAME DAY RESULT Final Resu lt [facility] [address] [place] [address] * (ABNORMAL) CULTURE, URINE, ROUTINE (01/05/2018 2:55 PM EDT) Bacteria culture (Urine) SEE NOTE(A) [facility] Comment: CULTURE, URINE, ROUTINE MICRO NUMBER: [id number] TEST STATUS: FINAL SPECIMEN SOURCE: URINE SPECIMEN [...] 3:23 AM EDT Narrative Resulting Agency Comment [id number] us Oni Graham MD LABORATORY Final Result [facility] [address] [place] [address] documented in this encounter Visit Diagnoses Diagnosis Burning with urination Dysuria documented in this encounter Care Teams Student Finance Advisor Relationship Specialty Start Date End Date Oni Graham MD PCP - General 10/06/17 09/13/20 Kirstie Martínez MD [address] [place] [address] PCP - General 09/14/20 02/22/22 Unknown Pcp, Non Rmg PCP - General 02/23/22 02/25/22 Zabrina Price MD [address] [address] PCP - General Family Medicine 02/26/22 documented as of this encounter
--- OUTSIDE RECORDS SUMMARY | 2025-09-26 08:07 | XMS_ITS | Clinical Summary ---
Author Organization [facility] Address [address] [place] [phone] Phone Care Team Providers Care Cloth Shrinker Name Role Phone Kelly Jaimes MD Primary Care Provider [phone] Allergies Active Allergy Reactions Criticality Noted Date [...] Orientation Straight 09/06/2024 11 :08 AM EST Last Filed Vital Signs Vital Sign Reading [...] Maintenance Results * COLONOSCOPY Anesthesia - MAC; [facility] ENDOSCOPY (09/06/2024 1:04 PM EST) Anatomical Region Laterality Modality Endoscopy 09/06/2024 12:4 1 PM EST Impressions 09/06/2024 1:06 PM EST - Two diminutive polyps in the transverse colon and in the ascending colon, removed with a jumbo cold forceps. Resected and retrieved. - Internal hemorrhoids. Recommendation: - Await pathology results. - Repeat colonoscopy in 5 years for surveillance. Narrative 09/06/2024 1:06 PM EST [facility] GI Patient Name: Aziza Walters Procedure [...] verified by the physician, the nurse, the manager cable and the central supply technician supervisor in the pre-procedure area in the endoscopy [...] not prolapse). Procedure Code(s): --- Professional --- 91749, Colonoscopy, flexible; with biopsy, single or multiple Diagnosis Code(s): --- Professional --- D12.3, Benign neoplasm of transverse colon (hepatic flexure or splenic flexure) D12.2, Benign neoplasm of ascending colon CPT copyright 2020 [employer]. All rights reserved. The codes documented in this report are preliminary and upon remote inpatient coder review may be revised to meet current compliance requirements. Yahaira Conroy MD 09/06/2024 1:05:55 PM This report has been signed electronically.Yahaira Conroy MD Number of Addenda: 0 Note Initiated On: 09/06/2024 12:41 PM Scope Withdrawal Time: 0 hours 6 minutes 17 seconds Scope In: 12:46:55 PM Scope Out: 1:04:01 PM Endoscopy Department at [facility] - [address] [place] [phone] Procedure Note Yahaira Conroy MD - 09/06/2024 [facility] Patient Name: Aziza Walters Procedure [...] the physician, the nurse, theanesthetist and the central supply technician supervisor in the pre-procedure area in the endoscopy [...] not prolapse). Procedure Code(s): --- Professional --- 82771, Colonoscopy, flexible; with biopsy, singleor multiple Diagnosis Code(s): --- Professional --- D12.3, Benign neoplasm of transverse colon (hepatic flexure or splenic flexure) D12.2, Benign neoplasm of ascending colon CPT copyright 2020 [employer]. All rights reserved. The codes documented in this report are preliminary and upon remote inpatient coder reviewmay be revised to meet current compliance requirements. Yahaira Conroy MD 09/06/2024 1:05:55 PM This report has been signed electronically.Yahaira Conroy MD Number of Addenda: 0 Note Initiated On: 09/06/2024 12:41 PM Scope Withdrawal Time: 0 hours 6 minutes 17 seconds Scope In: 12:46:55 PM Scope Out: 1:04:01 PM Endoscopy Department at [facility] - [address] [place] [phone] IMPRESSION: - Two diminutive polyps in the transverse colon and in the ascending colon, removed with a jumbo cold forceps. Resected and retrieved. - Internal hemorrhoids. Recommendation: - Await pathology results. - Repeat colonoscopy in 5 years for surveillance. us Yahaira Conroy MD GI~PROCEDURE ORDERABLES Fin al Result from Last 3 Months or Most Recently Relevant to Health Maintenance Insurance [facility] Care Teams Cloth Shrinker Relationship Specialty Start Date End Date Kelly Jaimes MD [address] [place] [address] [place] [address] PCP - General 12/18/23
--- OUTSIDE RECORDS SUMMARY | 2025-09-26 08:07 | XMS_ITS | Clinical Summary ---
Author Organization [facility] Address [address] [place] [address] Phone Care Team Providers Care Caramel Cutter Machine Name Role Phone Zabrina Price MD Primary [...] topic Medical Devices Not on file Insurance [facility] [employer] [place] [address] [address] [place] [address] [employer] [place] [employer] [place] [address] [address] [address] [place] [address] [place] [address] [place] [place] [address] [employer] Care Teams Caramel Cutter Machine Relationship Specialty Start Date End Date Zabrina Price MD [address] [place] [phone] [email or web address] PCP - General Family Medicine 05/06/22 Additional Source Comments The information contained in this document represents components of the legal health record. It is not the complete legal health record.[facility]
--- OUTSIDE RECORDS SUMMARY | 2025-09-26 08:07 | XMS_ITS | Encounter Summary ---
Author Organization [facility] Address [address] [place] [address] Care Team Providers Care Loan Assistant Name Role Phone Yesenia Modi MD Primary Care Provider [phone] Oni Graham MD Primary Care Provider [phone] Kirstie Martínez MD Primary Care Provider [phone] Unknown Pcp, Non g Primary Care Provider Unava Zabrina Flores MD Primary Care Provider [phone] Encounter Details Date Type Department Care Team (Late st Contact Info) Description 11/09/2008 Orders Only [facility] [address] [place] [phone] Yesenia Modi MD [address] [place] [phone] Social History Tobacco Use Types Packs/Day Years [...] 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 Procedure Name Priority Date/Time Associated Diagnosis Comments BASIC METABOLIC PANEL Routine 11/09/2008 Routine General Medical Examination at a Health Care Facility CBC 5 PART DIFF Routine 11/09/2008 Routine General Medical Examination at a [facility] documented in this encounter Results * Due to [place] state law, this organization might not be [...] facility documented in this encounter Care Teams Loan Assistant Relationship Specialty Start Date End Date Yesenia Modi MD PCP - General 04/11/08 03/18/16 Oni Graham MD PCP - General 10/06/17 09/13/20 Kirstie Martínez MD [address] [place] [id number] PCP - General 09/14/20 02/22/22 Unknown Pcp, Non Rmg PCP - General 02/23/22 02/25/22 Zabrina Price MD [address] [address] PCP - General Family Medicine 02/26/22 documented as of this encounter
--- OUTSIDE RECORDS SUMMARY | 2025-09-26 08:07 | XMS_ITS | Continuity of Care Document ---
Author Organization [facility] Address [address] [place] [address] Care Team Providers Care Inspection Engineer Name Role Phone Zabrina Price MD Primary Care Provider Encounters Date Type Department Care Team Description 10/07/2021 3:30 PM EST Radiology [address] [phone] 10/01/[address] [phone] Esme Mcdonald Tech A[facility] Program 10/01/[address] [phone] Kirstie Martínez MD Patient Questions 06/04/[address] [phone] Kirstie Martínez MD Results ; Labs/orders 05/27/2021 Minor Procedure/Test [address] [phone] Letty Ferreira NP 05/23/2021 1:15 PM EDT Office Visit [address] [phone] Letty Ferreira NP Superficial thrombophlebitis of right leg (Primary Dx); Varicose veins of both lower extremities with inflammation 05/16/[address] [address] Kirstie Martínez MD Results 05/13/2021 1:45 PM EDT Office Visit [address] [address] Kirstie Martínez MD Pain and swelling of right lower leg (Primary Dx); Superficial thrombophlebitis of right leg 05/13/[address] [address] Kirstie Martínez MD Knee Pain (Right); Varicose Veins 03/26/[address] [address] Kirstie Martínez MD Labs/orders 03/26/[address] [address] Kirstie Martínez MD Results ; Labs/orders 03/25/2021 Orders Only [address] [address] Kirstie Martínez MD 03/25/2021 Travel 03/25/2021 8:30 AM EDT CPE - 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 [address] [address] Kirstie Martínez MD Routine history and physical examination of adult (Primary Dx); Irregular menses; Vitamin D deficiency; Hyperlipidemia, unspecified hyperlipidemia type; Encounter for screening for malignant neoplasm of breast, unspecified screening modality; Lipid screening; Screening for diabetes mellitus; Screening for colon cancer 01/22/[address] [address] Keila Vera CMA Appointment 06/08/2020 Travel 06/08/2020 2:30 PM EDT Radiology [facility] Mammography [address] [place] [phone] Breast cancer screening by mammogram 02/07/2020 Travel 01/25/2020 Travel 06/23/2019 Letter/Form [facility] Primary Care Internal Medicine [address] [facility] [address] [place] [address] Oni Graham MD 05/16/2019 Telephone [facility] Primary Care Internal Medicine [address] [facility] [address] [place] [address] Oni Graham MD UTI 05/10/2019 Telephone [facility] Primary Care Internal Medicine [address] [facility] [address] [place] [phone] Oni Graham MD Patient Questions 04/07/2019 Telephone [facility] Primary [facility] Internal Medicine [address] [address] Oni Graham MD Results (Confirmed pharmacy) 04/06/2019 Orders Only [facility] Primary [facility] Internal Medicine [address] [address] Oni Graham MD 04/06/2019 Telephone [facility] Primary [facility] Internal Medicine [address] [address] Oni Graham MD UTI 02/19/2019 8:45 AM EDT Radiology [facility]. Mammography [address] [place] [address] Screening breast examination 01/31/2019 Orders Only [facility] Primary [facility] Internal Medicine [address] [address] Oni Graham MD Medications 01/31/2019 3:00 PM EDT CPE - 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 [facility] Primary [facility] Internal Medicine [address] [address] Oni Graham MD Routine history and physical examination of adult (Primary Dx); Other neutropenia; Vitamin D deficiency; Screening for nephropathy; Obesity, unspecified classification, unspecified obesity type, unspecified whether serious comorbidity present; Screening breast examination; Encounter for gynecological examination without abnormal finding; Screening for diabetes mellitus; Screening for hyperlipidemia; Need for vaccination 04/12/2018 Letter/Form [facility] Primary Care Internal Medicine [address] [facility] [address] [place] [address] Oni Graham MD 03/30/2018 Letter/Form [facility] Primary [facility] Internal Medicine [address] [facility] [address] [place] [phone] Oni Graham MD 01/08/2018 Telephone [facility] Primary Care Internal Medicine [address] [facility] [address] [place] [phone] Oni Graham MD Results (+UTI) 01/05/2018 Orders Only [facility] Primary Care Internal Medicine [address] [address] Oni Graham MD 01/05/2018 Telephone [facility] Primary Care Internal Medicine [address] [address] Oni Graham MD UTI 11/03/2017 Telephone [facility] Primary Care Internal Medicine [address] [place] [phone] Oni Graham MD Labs/orders 11/03/2017 Orders Only [facility] Primary [facility] Internal Medicine [address] [place] [phone] Oni Graham MD Medications 11/03/2017 2:40 PM EST Office Visit [facility] Primary Care Internal Medicine [address] [address] Oni Graham MD Subacute vaginitis (Primary Dx); Encounter for gynecological examination with abnormal finding; Screening for malignant neoplasm of cervix 10/19/2017 Orders Only [facility] Primary Care Internal Medicine [address] [address] Oni Graham MD Medications 10/19/2017 3:00 PM EST CPE - 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 [facility] Primary Care Internal Medicine [address] [address] Oni Graham MD Routine history and physical examination of adult (Primary Dx); Screening for deficiency anemia; Screening for endocrine, nutritional, metabolic and immunity disorder; Screening for diabetes mellitus; Screening for hyperlipidemia 01/05/2015 Orders Only [facility] [address] [address] Yesenia Modi MD 01/04/2015 Minor Procedure/Test URG CARE UNSPECIFIED Jorge Alberto Bernabe MD 01/04/2015 11:40 AM EDT Office Visit [address] [phone] Arelis Lama NP Knee pain (Primary Dx) 01/04/[address] [address] Yesenia Modi MD Swelling 01/02/2015 3:15 PM EDT Office Visit [address] [address] Jorge Alberto Bernabe MD Pain of lower extremity (Primary Dx) 01/02/[address] [address] Yesenia Modi MD Leg Pain; CPE/Physical 01/09/[address] [address] Yesenia Modi MD Appointment 01/07/[address] [address] Yesenia Modi MD Anxiety 10/22/[address] [address] Siobhan Vincent I RN Vomiting 10/22/2011 Telephone [facility] Orthopedic Surgery [address] [place] [address] [place] [address] Yousif Jaeger MD Patient Questions (irais) 10/21/2011 12:45 PM EST Office Visit [address] [phone] Theodore Oscar MD Low back pain (Primary Dx) 09/30/2011 Telephone [facility] Orthopedic Surgery [address] [facility] [address] [place] [address] Rashard Holcomb PA Cancellation 09/15/2011 3:00 PM EST Office Visit [facility] Rehabilitation OT [address]/ Parkinson's [address] [place] [address] Dora Marquez OT Mallet finger (Primary Dx) 09/02/2011 3:30 PM EST Office Visit [facility] Orthopedic Surgery [address] [facility] [address] [place] [address] Rashard Holcomb PA Mallet finger (Primary Dx) 08/11/2011 Telephone [facility] Orthopedic Surgery [address] [address] Rashard Holcomb PA Patient Questions (fei) 07/08/2011 Consult (Initial) Mallet finger 07/08/2011 Telephone [facility] Orthopedic Surgery [address] [address] Rashard Hoclomb PA Letter/form Request (Fei) 07/08/2011 1:30 PM EDT Consult (Initial) [facility] Orthopedic Surgery [address] [address] Rashard Holcomb PA Mallet finger (Primary Dx) 07/04/2011 Telephone [facility] [address] [place] [address] Yesenia Modi MD Erroneous encounter-disregard 06/30/2011 Telephone [facility] [address] [place] [address] Yesenia Modi MD Letter/form Request 06/25/2011 ER NON FC SA [facility] [address] [place] [address] Sprain and strain of wrist; Pain in limb; Accident - crushed by object; Injury, finger; Sprain and strain of hand 06/25/[address] [facility] [address] [place] [address] [facility], Emergency Rm Provider 06/25/2011 Orders Only NON FC SA [facility] [address] [place] [address] [facility], Emergency Rm Provider 06/24/2011 Orders Only May [address] [address] Yesenia Modi MD 06/24/[address] [address] Yesenia Modi MD Follow Up (finger injury); Information 06/23/[address] [address] Yesenia Modi MD Follow Up (finger pain); Information 06/18/2011 4:00 PM EDT Radiology February X-Ray [facility] [place] [address] Pain in finger of right hand 06/18/2011 Orders Only [address] [address] Yesenia Modi MD 06/18/2011 3:20 PM EDT Office Visit [address] [address] Rosalba Mason NP Pain in finger of right hand (Primary Dx) 06/18/[address] [address] Yesenia Modi MD Injury (ring finger, rt hand ) 06/11/2011 CPE - 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 Routine gynecological examination 06/11/2011 Orders Only Lab 01/20/[address] [address] Yesenia Modi MD Cancellation 12/18/2010 3:00 PM EST Office Visit [address] [address] Yesenia Modi MD Reactive depression (situational) (Primary Dx) 12/18/[address] [address] Yesenia Modi MD Depression 06/05/2010 Orders Only LAB UNSPECIFIED 06/05/2010 CPE - 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 Routine gynecological examination 04/08/2010 Letter/Form [address] [place] [address] [place] [address] Yesenia Modi MD 02/26/2010 Letter/Form [address] [address] [place] [address] Yesenia Modi MD 01/31/2010 1:00 PM EDT CPE - 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 [address] [place] [address] [place] [address] Yesenia Modi MD Routine general medical examination at a health care facility (Primary Dx); Screening for hyperlipidemia; Constipation 01/10/2010 Telephone [address] [place] [address] [place] [address] ScottArlyn LVN LPN Rectal Pain 09/12/2009 Office Visit 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 Contraception, Counseling NEC 06/08/2009 ER NON FC SA [address] [address] Abdominal Colic; Constipation; Abdominal Pain, Right Lower Quadrant; Abdominal Pain, Left Lower Quadrant 06/08/2009 ER NON FC SA [address] [address] 06/08/2009 Orders Only NON FC SA [address] [address] Sv, Unknown Provider 06/08/2009 Telephone [address] [place] [address] [place] [address] Yesenia Modi MD Urgent Symptom(s) 05/30/2009 CPE - 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 Routine Gynecological Examination 05/30/2009 Orders Only LAB UNSPECIFIED 05/16/2009 Telephone [address] [place] [address] [place] [address] Yesenia Modi MD Letter/form Request 12/08/2008 Telephone [address] [address] [address] [place] [address] Yesenia Modi MD No Show 11/09/2008 Orders Only [place] [address] [place] [address] [place] [address] Yesenia Modi MD 11/09/2008 1:00 PM EST CPE - 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 [facility] [address] [place] [address] Yesenia Modi MD Routine General Medical Examination at a Health Care Facility; Need for Prophylactic Vaccination with Tetanus-Diphtheria (TD) 05/24/2008 Orders Only LAB UNSPECIFIED 05/24/2008 CPE - 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 Routine Gynecological Examination 04/10/2008 Office Visit 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 Vaginitis and Vulvovaginitis 03/15/2008 Office Visit 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 Vaginitis and Vulvovaginitis 09/27/2007 Orders Only LAB UNSPECIFIED 09/27/2007 Office Visit 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 Vaginitis and Vulvovaginitis 05/19/2007 Office Visit 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 Vaginitis and Vulvovaginitis 05/19/2007 Orders Only LAB UNSPECIFIED 03/18/2007 CPE - 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 Routine Gynecological Examination 02/23/2007 Office Visit 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 Vaginitis and Vulvovaginitis 10/02/1998 CPE - [...] Overview (01/31/2010): Td: 2008 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 Immunizations Immunization Administration Dates Next [...] Alive Social History Smoking Status as of 09/26/2025 Tobacco Use Types Packs/Day Years Used Date [...] Not on file Procedures * Due to [place] state law, this organization might not be [...] 3:30 PM EDT Results * Due to [place] state law, this organization might not be [...] 3:43 PM EDT Narrative Resulting Agency Comment [id number] Kirstie Martínez MD LAB SAME DAY RESULT Final Result Performing Organization Address [facility] Co de Phone Number [facility] [address] [place] [address] * HEMOGLOBIN A1C (03/25/2021 9:15 AM EDT) [...] diagnosis of diabetes in children. According to [place] Diabetes Association (ADA) guidelines, hemoglobin A1c <7.0% represents optimal control in non- diabetic patients. Different metrics may apply to specific patient populations. Standards of Medical Care in Diabetes(ADA). Estimated Average Glucose 108 mg/dL (calc) [facility] 03/25/2021 9:15 AM EDT 03/25/2021 3:43 PM EDT Narrative Resulting Agency Comment [id number] Kirstie Martínez MD LABORATORY Final Result Performing Organization Address City/[facility] Co de Phone Number [facility] [address] [place] [address] * VITAMIN D, 25-HYDROXY, TOTAL, IMMUNOASSAY (03/25/2021 [...] D, (D2,D3), LC/MS/MS is recommended: order code 28622 (patients >2yrs). See Note 1 Note 1 For additional information, please refer to http://[employer]/faq/UET351 (This link is being provided for informational/ educational purposes only.) 03/25/2021 9:15 AM EDT 03/25/2021 3:43 PM EDT us Kirstie Martínez MD LABORATORY Final Result [facility] [address] [place] [address] * (ABNORMAL) LIPID PANEL WITH REFLEX TO [...] LDL-C. Wilver MICHELLE et al. JUAN. 2013;310(19): 2461-4484 (http://education.[employer]/faq/CMX582) CHOL/HDL Ratio 3.1 <5.0 (calc) [facility] Cholesterol Non-HDL 151(H) <130 mg/dL (calc) [facility] Comment: For patients with diabetes plus 1 major ASCVD risk factor, treating to a non-HDL-C goal of <100 mg/dL (LDL-C of <70 mg/dL) is considered a therapeutic option. 03/25/2021 9:15 AM EDT 03/25/2021 3:43 PM EDT Narrative Resulting Agency Comment [id number] Kirstie Martínez MD LABORATORY Final Result Performing Organization Address [facility] Co de Phone Number [facility] [address] [place] [address] * FECAL GLOBIN IMMUNOCHEMICAL TEST (SHALA) (03/25/2021) Fecal Globin Immunochemical Test SEE NOTE [facility] Comment: FECAL GLOBIN BY IMMUNOCHEMISTRY Micro Number: [id number] Test Status: Final Specimen Source: INSURE () FOBT TEST CARD Specimen Quality: Adequate Fecal Globin: Not Detected The specimen receive date on this report reflects the date that [employer] received the test order from the physician. The specimen would have been separately submitted by the patient at a later date. 03/25/2021 03/25/2021 3:4 3 PM EDT Narrative Resulting Agency Comment [id number] Kirstie Martínez MD LABORATORY Final Result Performing Organization Address [facility] de Phone Number [facility] [address] [place] [address] * MAMMOGRAM SCREENING TOMOSYNTHESIS, BILATERAL FC (06/08/2020 [...] is included. Bacteria culture (Urine) SEE NOTE(A) [facility] Comment: CULTURE, URINE, ROUTINE MICRO NUMBER: [id number] TEST STATUS: FINAL SPECIMEN SOURCE: NOT GIVEN [...] 7:55 PM EDT Narrative Resulting Agency Comment [id number] Beth CARABALLO LABORATORY Final Result Performing Organization Address [facility] de Phone Number [facility] [address] [place] [address] * (ABNORMAL) URINALYSIS, COMPLETE INCLUDES DIPSTICK AND [...] 7:55 PM EDT Narrative Resulting Agency Comment [id number] Beth CARABALLO LAB SAME DAY RESULT Final Res ult Performing Organization Address [facility] Co de Phone Number [facility] [address] [place] [address] * CBC INCLUDES DIFFERENTIAL AND PLATELET COUNT [...] 12:39 AM EDT Narrative Resulting Agency Comment [id number] us Oni Graham MD LAB SAME DAY RESULT Final Resu lt Performing Organization Address [facility] Co de Phone Number [facility] [address] [place] [address] * THYROID CASCADING REFLEX (01/31/2019 4:34 PM EDT) TSH 2.37 mIU/L [facility] Comment: Reference Range > or = 20 Years 0.40-4.50 Ranges First trimester 0.26-2.66 Second trimester 0.55-2.73 Third trimester 0.43-2.91 01/31/2019 4:34 PM EDT 02/01/2019 12:39 AM EDT Narrative Resulting Agency Comment [id number] us Oni Graham MD LABORATORY Final Result Performing Organization Address [facility] Co de Phone Number [facility] [address] [place] [address] * URINE DIP, REFLEX TO MICROSCOPIC (01/31/2019 [...] 12:39 AM EDT Narrative Resulting Agency Comment [id number] us Oni Graham MD LAB SAME DAY RESULT Final Resu lt [facility] [address] [place] [address] * (ABNORMAL) BASIC METABOLIC PANEL WITH (GFR) [...] needs for GFR calculation. Resulting Agency Comment [id number] Oni Graham MD LABORATORY Final Result Performing Organization Address [facility]/ZIP Co de Phone Number [facility] [address] [place] [address] * THINPREP TIS PAP AND HPV RNA, HR E6/E7, TMA (11/03/2017 4:40 PM EST) Clinical information None given [facility] Date last menstrual period [id number] [facility] Date of previous PAP smear NONE GIVEN [facility] Date of previous biopsy NONE GIVEN [facility] Specimen source (Cvx/Vag) Vagina, Cervix, Endocervix [facility] Statement of Adequacy (Cvx/Vag) Satisfactory for evaluation. Endocervical/gonzalez sformation zone component absent. [facility] Cytology, Pap Smear Negative for intraepithelial lesion or malignancy. [facility] Microorganism identified (Cvx/Vag) Shift in vaginal elsie suggestive of bacterial vaginosis. [facility] Cytology study comment (Cvx/Vag) This Pap test has been evaluated with computer assisted technology. [facility] Senior [employer] Net Developer (Cvx/Vag) AMELIA KINNEY(ASCP) CT screening location: [place] [address] [employer] HPV MRNA E6/E7 Not Detected Not Detected [facility] Comment: This test was performed using the APTIMA HPV Assay ([employer] This assay detects E6/E7 viral messenger RNA (mRNA) from 14 high-risk HPV types (16,18,31,33,35,39,45,51,52,56,58,59,66,68). 11/03/2017 4:40 PM EST 11/04/2017 4:38 AM EST Narrative Resulting Agency Comment [id number] Oni Graham MD PATHOLOGY-INTERFACED Final Res ult Performing Organization Address [facility]/ZIP Co de Phone Number [facility] [address] [place] [address] * (ABNORMAL) CULTURE, GENITAL (11/03/2017 4:15 PM EST) Bacteria culture (Genital) SEE NOTE(A) [facility] Comment: CULTURE, GENITAL MICRO NUMBER: [id number] TEST STATUS: FINAL SPECIMEN SOURCE: GENITAL SPECIMEN QUALITY: ADEQUATE RESULT: Scant growth of Group B Streptococcus isolated Beta-hemolytic Streptococci are predictably susceptible to penicillin and other beta-lactams. Susceptibility testing not routinely performed. COMMENT: Normal urogenital elsie also present. 11/03/2017 4:15 PM EST 11/03/2017 10:22 PM EST Narrative Resulting Agency Comment [id number] us Oni Graham MD LABORATORY Final Result Performing Organization Address [facility] Co de Phone Number [facility] [address] [place] [address] * GLUCOSE (BLOOD) (10/19/2017 4:05 PM EST) Pathologist [facility] Glucose 89 65 - 99 mg/dL [facility] Comment:Fasting reference in terval 10/19/2017 4:05 PM EST 10/19/2017 10:43 PM EST Narrative Resulting Agency Comment [id number] us Oni Graham MD LAB SAME DAY RESULT Final Resu lt Performing Organization Address [facility] de Phone Number [facility] [address] [place] [address] * FINGERS - RIGHT (06/25/2011 1:54 PM EDT) Pathologist [facility] RADIOLOGY REPORT Right fourth finger: Three views. Indication status post injury. No fracture, dislocation or other bone or joint abnormality is seen. The soft tissues are normal. Impression: No bony abnormality. [facility] RAD Anatomical Region Laterality Modality Other 06/25/2011 1:54 PM EDT Narrative 06/25/2011 1:57 PM EDT Reason for Study/History: Indication status post injury. TEST(S) PROCESSED BY [facility] XRAY Emergency Rm Provider [facility] IMAGING-[facility] Final Result * XRAY HAND MIN 3 [...] Lester Reason for Study/History: TEST(S) PROCESSED BY [facility] XRAY us Unknown Provider [facility]AGING-[facility] Final Resul t * CBC 5 PART [...] Ordered by Emergency Room us Unknown Provider [facility] LABORATORY Final Resul t * (ABNORMAL) LIPASE (06/08/2009 9:52 PM EDT) LIPASE 60(H) 0 - 59 U/L 06/08/2009 9:52 PM EDT 06/08/2009 9:52 PM EDT Narrative 06/08/2009 10:40 PM EDT Ordered by Emergency Room us Unknown Provider [facility] LABORATORY Final Resul t * (ABNORMAL) AMYLASE (06/08/2009 9:52 PM EDT) AMYLASE 102(H) 0 - 99 U/L 06/08/2009 9:52 PM EDT 06/08/2009 9:52 PM EDT Narrative 06/08/2009 10:40 PM EDT Ordered by Emergency Room us Unknown Provider [facility] LABORATORY Final Resul t * (ABNORMAL) [...] EDT Ordered by Emergency Room Unknown Provider [facility] LABORATORY Final Resul t * BASIC [...] EST >60.0 60.0 - 128.0 mL/min IF -ENGLISH >60.0 60.0 - 128.0 mL/min 06/08/2009 9:52 PM EDT 06/08/2009 9:52 PM EDT Narrative 06/08/2009 10:40 PM EDT Ordered by Emergency Room Unknown Provider [facility] LABORATORY Final Resul t * BASIC [...] PA & LAT (01/14/2007 4:50 PM EDT) [facility] RADIOLOGY REPORT Chest, 2 views: No previous. The cardiomediastinal contour, pulmonary vasculature, and lung wong are within normal limits. Pleural reflections are clear and bony structures are unremarkable. IMPRESSION: No active disease. [facility] (CLIA# [id number]) Anatomical Region Laterality Modality Other 01/14/2007 4:50 PM EDT Narrative 01/15/2007 11:23 AM EDT Reason for Study/History: + ppd TEST(S) PROCESSED BY [facility] Katja Allison MD GENERAL IMAGING- OTHER Final Result * HEPATITIS B SURFACE ANTIBODY, QUANTITATIVE (01/14/2007 3:30 PM EDT) [facility] [facility] HEPATITIS B SURFACE AB QUANTITATIVE 58 MIU/ML [facility] (CLIA# [id number]) Comment: < 10MIU/ML PATIENT DOES NOT HAVE IMMUNITY TO HEPATITIS B VIRUS. > OR EQUAL TO 10 MIU/ML PATIENT HAS IMMUNITY TO HEPATITIS B VIRUS. 01/14/2007 3:30 PM EDT 01/16/2007 2:16 AM EDT Katja Allison MD LABORATORY Final Result [facility] (CLIA# [id number]) [address] [place] [address] * VARICELLA IGG AB (01/14/2007 3:30 PM EDT) [facility] VARICELLA ZOSTER IGG 1.3 (IMMUNE) ISR [facility] (CLIA# [id number]) Comment: <=0.90 NEGATIVE 0.91-1.09 EQUIVOCAL >=1.10 POSITIVE [...] MD LABORATORY Final Result Performing Organization Address City/[facility]/ZIP Co de Phone Number [facility] (CLIA# [id number]) [address] [place] [id number] * RUBEOLA IGG AB (01/14/2007 3:30 PM EDT) RUBEOLA IGG AB 3.2 (IMMUNE) SEE BELOW [facility] (CLIA# [id number]) Comment:REFERENCE: 1.1 OR > INDICATES ANTIBODY 01/14/2007 3:30 PM EDT 01/16/2007 2:16 AM EDT Katja Allison MD LABORATORY Final Result Performing Organization Address [facility] Co de Phone Number [facility] (CLIA# [id number]) [address] [place] [address] * RUBELLA IGG AB (01/14/2007 3:30 PM EDT) RUBELLA IGG AB 5.44 (IMMUNE) SEE BELOW [facility] (CLIA# [id number]) Comment: REFERENCE: 1.1 OR > INDICATES ANTIBODY THE PRESENCE OF RUBELLA IGG ANTIBODY SUGGESTS A CURRENT OR PAST INFECTION OR IMMUNIZATION WITH RUBELLA VIRUS. 01/14/2007 3:30 PM EDT 01/16/2007 2:16 AM EDT Katja Allison MD LABORATORY Final Result Performing Organization Address City/[facility] Co de Phone Number [facility] (CLIA# [id number]) [address] [place] [phone] * MUMPS ANTIBODY (IGG) (01/14/2007 3:30 PM EDT) MUMPS VIRUS AB.IGG 4.9 (IMMUNE) SEE BELOW [facility] (CLIA# [id number]) Comment:REFERENCE: 1.1 OR > INDICATES ANTIBODY 01/14/2007 3:30 PM EDT 01/16/2007 2:16 AM EDT us Katja Allison MD LABORATORY Final Result Performing Organization Address City/State/[facility] Co de Phone Number [facility] (CLIA# [id number]) [address] [place] [address] Visit Diagnoses Diagnosis Start Date Health examination [...] lower extremities with inflammation 05/23/2021 Care Teams Inspection Engineer Relationship Specialty Start Date End Date Zabrina Price MD [address] [address] PCP - General Family Medicine 02/26/22
== END 2025-09-26 09:17 | disposition home or self-care (01) ==
LOC: HO.HWS 07:57
PROVIDERS: PCP Internal Medicine; Visit Provider Obstetrics & Gynecology
DX: N95.0 Postmenopausal bleeding (principal); D25.9 Leiomyoma of uterus, unspecified
CPT/HCPCS: 99213

== ENCOUNTER 2025-10-02 11:38 | Day surgery (SDC) | payer OTHER, SELFPAY ==
--- NOTE | 2025-09-27 10:36 | P.CONAN_ITS ---
Documented by User: Ruchi Disla NP 09/27/25 10:36 HPI - Anesthesia Eval Consult details Narrative: 54yo F for D&C Hysteroscopy,possible myomectomy,possible polypectomy PMFSH Active Problems Active Problems: All Active Problems Uterine myoma (Acute) Postmenopausal bleeding (Acute) High cholesterol (Acute) HTN (hypertension) (Acute) Past Medical History Medical History HTN (hypertension) High cholesterol Family History Family History Mother High blood pressure determined by examination Father No problems noted. Social History Social History Are you a primary animal care giver to a significant other at home: No Do you presently have visiting nurse or other home services: No Patient Tobacco Use Status: Never used Tobacco Second Hand Smoke Exposure: No Use of substances other than those prescribed or required for medical reasons: No Have you been hit, kicked, punched, or otherwise hurt by someone within the past year? If so, by whom?: No Are you DNR?: No Advance Directives: No Advance Directives Information Provided: Yes Advance Directives on File: No Patient : No : No Meds Allergies Allergy/AdvReac Type Severity Reaction Status Date / Time acetaminophen (From Vicodin) Allergy Intermediate Nausea and Verified 09/26/25 08:12 Vomiting hydrocodone (From Vicodin) Allergy Intermediate Nausea and Verified 09/26/25 08:12 Vomiting Home Medications ?Medication ?Instructions ?Recorded ?Confirmed ?Last Taken ?Type atorvastatin 40 mg tablet (Lipitor) 40 mg PO DAILY 04/0508/17/25 Unknown History losartan 100 mg tablet 100 mg PO DAILY 08/17/2504/05 Unknown History Assessment and Plan Assessment Anesthesia Assessment: Chart Reviewed Documented by User: Omayra Ramos MD 10/02/25 13:17 [facility] Past Medical History Medical History HTN (hypertension) High cholesterol Family History Family History Mother High blood pressure determined by examination Father No problems noted. Family history of problems with anesthesia: No Surgical History History of Problems with Anesthesia: No Social History Social History Are you a primary animal care giver to a significant other at home: No Do you presently have visiting nurse or other home services: No Patient Tobacco Use Status: Never used Tobacco Second Hand Smoke Exposure: No Use of substances other than those prescribed or required for medical reasons: No Have you been hit, kicked, punched, or otherwise hurt by someone within the past year? If so, by whom?: No Are you DNR?: No Advance Directives: No Advance Directives Information Provided: Yes Advance Directives on File: No Patient : No : No Meds Allergies Allergy/AdvReac Type Severity Reaction Status Date / Time acetaminophen (From Vicodin) Allergy Intermediate Nausea and Verified 09/26/25 08:12 Vomiting hydrocodone (From Vicodin) Allergy Intermediate Nausea and Verified 09/26/25 08:12 Vomiting Home Medications ?Medication ?Instructions ?Recorded ?Confirmed ?Last Taken ?Type atorvastatin 40 mg tablet (Lipitor) 40 mg PO DAILY 04/0508/17/25 Unknown History losartan 100 mg tablet 100 mg PO DAILY 08/17/2504/05 Unknown History Exam Airway Mallampati Class: II TM Dist: >3cm Neck ROM: Full Heart: rrr Lungs: cta Assessment and Plan Assessment Anesthesia Assessment: Anesthesia Plan Discussed Final Anesthetic Review Family History of Problems with Anesthesia: No History of Problems with Anesthesia: No NPO: Yes ASA Class: II Final Preanesthetic Review: No Changes in Pt Med Stat, Meds/Allgs Chart Reviewed, Consent Obtained/Reviewed and Anes Risks/Benef Reviewed Patient Risk: Intermediate Procedure Risk: Low Anesthetic Plan Anesthetic Plan: GA and Agree w/ Assess. and Plan Disposition: Standard PACU
--- OUTSIDE RECORDS SUMMARY | 2025-09-27 10:37 | XMS_ITS | Encounter Summary ---
Author Organization [facility] Address [address] [place] [address] Care Team Providers Care Studio Camera Operator Name Role Phone Oni Graham MD Primary Care Provider Kirstie Martínez MD Primary Care Provider Unknown Pcp, Non g Primary Care Provider Unava Zabrina Flores MD Primary Care Provider [phone] Encounter Details Date Type Department Care Team (Late st Contact Info) Description 01/05/2018 Orders Only [facility] Primary Care Internal Medicine [address] [place] [address] [address] [place] [id number] Oni Graham MD [facility] [address] [place] [id number] Social History Tobacco Use Types Packs/Day Years [...] 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 Recommend Macrobid 100 mg twice daily for 7 days documented in this encounter Plan of Treatment Not on file documented as of this encounter Procedures * Due to [place] [employer] law, this organization might not be sharing negative HIV tests. Procedure Name Priority Date/Time Associated Diagnosis Comments CULTURE, URINE, ROUTINE Routine 01/05/2018 2:55 PM EDT Burning with urination URINALYSIS, COMPLETE INCLUDES DIPSTICK AND MICROSCOPIC Routine 01/05/2018 2:55 PM EDT Burning with urination documented in this encounter Results * Due to [place] [employer] [employer] law, this organization might not be sharing [...] 3:23 AM EDT Narrative Resulting Agency Comment [id number] us Oni Graham MD LAB SAME DAY RESULT Final Resu lt [facility] [address] [place] [address] * (ABNORMAL) CULTURE, URINE, ROUTINE (01/05/2018 2:55 PM EDT) Bacteria culture (Urine) SEE NOTE(A) [facility] Comment: CULTURE, URINE, ROUTINE MICRO NUMBER: [id number] TEST STATUS: FINAL SPECIMEN SOURCE: URINE SPECIMEN [...] 3:23 AM EDT Narrative Resulting Agency Comment [id number] us Oni Graham MD LABORATORY Final Result [facility] [address] [place] [address] documented in this encounter Visit Diagnoses Diagnosis Burning with urination Dysuria documented in this encounter Care Teams Studio Camera Operator Relationship Specialty Start Date End Date Oni Graham MD PCP - General 10/06/17 09/13/20 Kirstie Martínez MD [address] [place] [address] PCP - General 09/14/20 02/22/22 Unknown Pcp, Non [facility] PCP - General 02/23/22 02/25/22 Zabrina Price MD [address] [address] PCP - General Family Medicine 02/26/22 documented as of this encounter
--- OUTSIDE RECORDS SUMMARY | 2025-09-27 10:37 | XMS_ITS | Encounter Summary ---
Author Organization [facility] Address [address] [place] [address] Care Team Providers Care Package Lift Operator Name Role Phone Yesenia Modi MD Primary Care Provider [phone] Oni Graham MD Primary Care Provider [phone] Kirstie Martínez MD Primary Care Provider [phone] Unknown Pcp, Non g Primary Care Provider Unava Zabrina Flores MD Primary Care Provider [phone] Encounter Details Date Type Department Care Team (Late st Contact Info) Description 11/09/2008 Orders Only [facility] [address] [place] [phone] Yesenia Modi MD [address] [place] [id number] Social History Tobacco Use Types Packs/Day Years [...] 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 Procedure Name Priority Date/Time Associated Diagnosis Comments BASIC METABOLIC PANEL Routine 11/09/2008 Routine General Medical Examination at a Health Care Facility CBC 5 PART DIFF Routine 11/09/2008 Routine General Medical Examination at a [facility] Facility documented in this encounter Results * Due to [place] state law, this organization might not be [...] facility documented in this encounter Care Teams Package Lift Operator Relationship Specialty Start Date End Date Yesenia Modi MD PCP - General 04/11/08 03/18/16 Oni Graham MD PCP - General 10/06/17 09/13/20 Kirstie Martínez MD [address] [place] [address] PCP - General 09/14/20 02/22/22 Unknown Pcp, Non [facility] PCP - General 02/23/22 02/25/22 Zabrina Price MD [address] [address] PCP - General Family Medicine 02/26/22 documented as of this encounter
--- OUTSIDE RECORDS SUMMARY | 2025-09-27 10:37 | XMS_ITS | Clinical Summary ---
Author Organization [facility] Address [address] [place] [phone] Phone Care Team Providers Care Flour Inspector Name Role Phone Kelly Jaimes MD Primary Care Provider [phone] Allergies Active Allergy Reactions Criticality Noted Date [...] Maintenance Results * COLONOSCOPY Anesthesia - MAC; [facility] ENDOSCOPY (09/06/2024 1:04 PM EST) Anatomical Region [...] verified by the physician, the nurse, the manufacturing specialist and the vehicle modification technician in the pre-procedure area in the [...] not prolapse). Procedure Code(s): --- Professional --- 51570, Colonoscopy, flexible; with biopsy, single or multiple Diagnosis Code(s): --- Professional --- D12.3, Benign neoplasm of transverse colon (hepatic flexure or splenic flexure) D12.2, Benign neoplasm of ascending colon CPT copyright 2020 [employer]. All rights reserved. The codes documented in this report are preliminary and upon tile setter supervisor review may be revised to meet current compliance requirements. Yahaira Conroy MD 09/06/2024 1:05:55 PM This report has been signed electronically.Yahaira Conroy MD Number of Addenda: 0 Note Initiated On: 09/06/2024 12:41 PM Scope Withdrawal Time: 0 hours 6 minutes 17 seconds Scope In: 12:46:55 PM Scope Out: 1:04:01 PM Endoscopy Department at [facility] - [address] [place] [phone] Procedure Note Yahaira Conroy MD - 09/06/2024 [...] the physician, the nurse, theanesthetist and the vehicle modification technician in the pre-procedure area in the [...] not prolapse). Procedure Code(s): --- Professional --- 72144, Colonoscopy, flexible; with biopsy, singleor multiple Diagnosis Code(s): --- Professional --- D12.3, Benign neoplasm of transverse colon (hepatic flexure or splenic flexure) D12.2, Benign neoplasm of ascending colon CPT copyright 2020 [employer]. All rights reserved. The codes documented in this report are preliminary and upon tile setter supervisor reviewmay be revised to meet current compliance requirements. Yahaira Conroy MD 09/06/2024 1:05:55 PM This report has been signed electronically.Yahaira Conroy MD Number of Addenda: 0 Note Initiated On: 09/06/2024 12:41 PM Scope Withdrawal Time: 0 hours 6 minutes 17 seconds Scope In: 12:46:55 PM Scope Out: 1:04:01 PM Endoscopy Department at [facility] - [address] [place] [phone] IMPRESSION: - Two diminutive polyps in the transverse colon and in the ascending colon, removed with a jumbo cold forceps. Resected and retrieved. - Internal hemorrhoids. Recommendation: - Await pathology results. - Repeat colonoscopy in 5 years for surveillance. us Yahaira Conroy MD GI~PROCEDURE ORDERABLES Fin al Result from Last 3 Months or Most Recently Relevant to Health Maintenance Insurance [facility] Care Teams Flour Inspector Relationship Specialty Start Date End Date Kelly Jaimes MD [address] [place] [address] [place] [address] PCP - General 12/18/23
--- OUTSIDE RECORDS SUMMARY | 2025-09-27 10:37 | XMS_ITS | Continuity of Care Document ---
Author Organization [facility] Address [address] [place] [address] Care Team Providers Care Sfdc Technical Architect Name Role Phone Zabrina Price MD Primary Care Provider Encounters Date Type Department Care Team Description 10/07/2021 3:30 PM EST Radiology [address] [phone] 10/01/[address] [phone] Esme Mcdonald Tech Aou Program 10/01/[address] [phone] Kirstie Martínez MD Patient Questions 06/04/[address] [phone] Kirstie Martínez MD Results ; Labs/orders 05/27/2021 Minor Procedure/Test [address] [phone] Letty Ferreira NP 05/23/2021 1:15 PM EDT Office Visit [address] [phone] Letty Ferreira NP Superficial thrombophlebitis of right leg (Primary Dx); Varicose veins of both lower extremities with inflammation 05/16/[address] [address] Kirstie Martínez MD Results 05/13/2021 1:45 PM EDT Office Visit [address] [address] Kirstie Martínez MD Pain and swelling of right lower leg (Primary Dx); Superficial thrombophlebitis of right leg 05/13/[address] [address] Kirstie Martínez MD Knee Pain (Right); Varicose Veins 03/26/[address] [address] Kirstie Martínez MD Labs/orders 03/26/[address] [address] Kirstie Martínez MD Results ; Labs/orders 03/25/2021 Orders Only [address] [address] Kirstie Martínez MD 03/25/2021 Travel 03/25/2021 8:30 AM EDT CPE - 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 [address] [address] Kirstie Martínez MD Routine history and physical examination of adult (Primary Dx); Irregular menses; Vitamin D deficiency; Hyperlipidemia, unspecified hyperlipidemia type; Encounter for screening for malignant neoplasm of breast, unspecified screening modality; Lipid screening; Screening for diabetes mellitus; Screening for colon cancer 01/22/[address] [address] Keila Vera CMA Appointment 06/08/2020 Travel 06/08/2020 2:30 PM EDT Radiology [facility] Mammography [address] [place] [phone] Breast cancer screening by mammogram 02/07/2020 Travel 01/25/2020 Travel 06/23/2019 Letter/Form [facility] Primary Care Internal Medicine [address] [facility] [address] [place] [address] Oni Graham MD 05/16/2019 Telephone [facility] Primary Care Internal Medicine [address] [facility] [address] [place] [address] Oni Graham MD UTI 05/10/2019 Telephone [facility] Primary Care Internal Medicine [address] 123 [facility] [address] [place] [phone] Oni Graham MD Patient Questions 04/07/2019 Telephone [facility] Primary [facility] Internal Medicine [address] [address] Oni Graham MD Results (Confirmed pharmacy) 04/06/2019 Orders Only [facility] Primary [facility] Internal Medicine [address] [address] Oni Graham MD 04/06/2019 Telephone [facility] Primary [facility] Internal Medicine [address] [address] Oni Graham MD UTI 02/19/2019 8:45 AM EDT Radiology [facility]. Mammography [address] [place] [address] Screening breast examination 01/31/2019 Orders Only [facility] Primary [facility] Internal Medicine [address] [address] Oni Graham MD Medications 01/31/2019 3:00 PM EDT CPE - 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 [facility] Primary [facility] Internal Medicine [address] [address] Oni Graham MD Routine history and physical examination of adult (Primary Dx); Other neutropenia; Vitamin D deficiency; Screening for nephropathy; Obesity, unspecified classification, unspecified obesity type, unspecified whether serious comorbidity present; Screening breast examination; Encounter for gynecological examination without abnormal finding; Screening for diabetes mellitus; Screening for hyperlipidemia; Need for vaccination 04/12/2018 Letter/Form [facility] Primary Care Internal Medicine [address] [facility] [address] [place] [address] Oni Graham MD 03/30/2018 Letter/Form [facility] Primary [facility] Internal Medicine [address] [facility] [address] [place] [phone] Oni Graham MD 01/08/2018 Telephone [facility] Primary Care Internal Medicine [address] [facility] [address] [place] [phone] Oni Graham MD Results (+UTI) 01/05/2018 Orders Only [facility] Primary Care Internal Medicine [address] [address] Oni Graham MD 01/05/2018 Telephone [facility] Primary Care Internal Medicine [address] [address] Oni Graham MD UTI 11/03/2017 Telephone [facility] Primary Care Internal Medicine [address] [place] [address] Oni Graham MD Labs/orders 11/03/2017 Orders Only [facility] Primary [facility] Internal Medicine [address] [place] [address] Oni Graham MD Medications 11/03/2017 2:40 PM EST Office Visit [facility] Primary Care Internal Medicine [address] [address] Oni Graham MD Subacute vaginitis (Primary Dx); Encounter for gynecological examination with abnormal finding; Screening for malignant neoplasm of cervix 10/19/2017 Orders Only [facility] Primary Care Internal Medicine [address] [address] Oni Graham MD Medications 10/19/2017 3:00 PM EST CPE - 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 [facility] Primary Care Internal Medicine [address] [address] Oni Graham MD Routine history and physical examination of adult (Primary Dx); Screening for deficiency anemia; Screening for endocrine, nutritional, metabolic and immunity disorder; Screening for diabetes mellitus; Screening for hyperlipidemia 01/05/2015 Orders Only [facility] [address] [address] Yesenia Modi MD 01/04/2015 Minor Procedure/Test URG CARE UNSPECIFIED Jorge Alberto Bernabe MD 01/04/2015 11:40 AM EDT Office Visit [address] [phone] Arelis Lama NP Knee pain (Primary Dx) 01/04/[address] [address] Yesenia Modi MD Swelling 01/02/2015 3:15 PM EDT Office Visit [address] [address] Jorge Alberto Bernabe MD Pain of lower extremity (Primary Dx) 01/02/[address] [address] Yesenia Modi MD Leg Pain; CPE/Physical 01/09/[address] [address] Yesenia Modi MD Appointment 01/07/[address] [address] Yesenia Modi MD Anxiety 10/22/[address] [address] Siobhan Vincent I RN Vomiting 10/22/2011 Telephone [facility] Orthopedic Surgery [address] [place] [address] [place] [phone] Yousif Jaeger MD Patient Questions (irais) 10/21/2011 12:45 PM EST Office Visit [address] [phone] Theodore Oscar MD Low back pain (Primary Dx) 09/30/2011 Telephone [facility] Orthopedic Surgery [address] [facility] [address] [place] [address] Rashard Holcomb PA Cancellation 09/15/2011 3:00 PM EST Office Visit [facility] Rehabilitation OT [address]/ Parkinson's [address] [place] [address] Dora Marquez OT Mallet finger (Primary Dx) 09/02/2011 3:30 PM EST Office Visit [facility] Orthopedic Surgery [address] 123 [facility] [address] [place] [address] Rashard Holcomb PA Mallet finger (Primary Dx) 08/11/2011 Telephone [facility] Orthopedic Surgery [address] [address] Rashard Holcomb PA Patient Questions (fei) 07/08/2011 Consult (Initial) Mallet finger 07/08/2011 Telephone [facility] Orthopedic Surgery [address] [address] Rashard Holcomb PA Letter/form Request (Fei) 07/08/2011 1:30 PM EDT Consult (Initial) [facility] Orthopedic Surgery [address] [address] Rashard Holcomb PA Mallet finger (Primary Dx) 07/04/2011 Telephone [facility] [address] [place] [address] Yesenia Modi MD Erroneous encounter-disregard 06/30/2011 Telephone [facility] [address] [place] [address] Yesenia Modi MD Letter/form Request 06/25/2011 ER NON FC [facility] [address] [place] [address] Sprain and strain of wrist; Pain in limb; Accident - crushed by object; Injury, finger; Sprain and strain of hand 06/25/[address] [facility] [address] [place] [address] [facility], Emergency Rm Provider 06/25/2011 Orders Only NON FC [facility] [address] [place] [address] [facility], Emergency Rm Provider 06/24/2011 Orders Only May [address] [address] Yesenia Modi MD 06/24/[address] [address] Yesenia Modi MD Follow Up (finger injury); Information 06/23/[address] [address] Yesenia Modi MD Follow Up (finger pain); Information 06/18/2011 4:00 PM EDT Radiology February X-Ray [facility] [place] [address] Pain in finger of right hand 06/18/2011 Orders Only [address] [address] Yesenia Modi MD 06/18/2011 3:20 PM EDT Office Visit [address] [address] Rosalba Mason NP Pain in finger of right hand (Primary Dx) 06/18/[address] [address] Yesenia Modi MD Injury (ring finger, rt hand ) 06/11/2011 CPE - 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 EXAMINER RATING CLERK UNSPECIFIED Routine gynecological examination 06/11/2011 Orders Only Lab 01/20/[address] [address] Yesenia Modi MD Cancellation 12/18/2010 3:00 PM EST Office Visit [address] [address] Yesenia Modi MD Reactive depression (situational) (Primary Dx) 12/18/[address] [address] Yesenia Modi MD Depression 06/05/2010 Orders Only LAB UNSPECIFIED 06/05/2010 CPE - 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 EXAMINER RATING CLERK UNSPECIFIED Routine gynecological examination 04/08/2010 Letter/Form [address] [place] [address] [address] [place] [address] Yesenia Modi MD 02/26/2010 Letter/Form [address] [address] [place] [address] Yesenia Modi MD 01/31/2010 1:00 PM EDT CPE - 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 [address] [address] [place] [address] Yesenia Modi MD Routine general medical examination at a health care facility (Primary Dx); Screening for hyperlipidemia; Constipation 01/10/2010 Telephone [address] [address] [place] [address] ScottArlyn LVN LPN Rectal Pain 09/12/2009 Office Visit EXAMINER RATING CLERK UNSPECIFIED Contraception, Counseling NEC 06/08/2009 ER NON FC [facility] [address] [address] Abdominal Colic; Constipation; Abdominal Pain, Right Lower Quadrant; Abdominal Pain, Left Lower Quadrant 06/08/2009 ER NON FC [facility] [address] [address] 06/08/2009 Orders Only NON FC [facility] [address] [address] Sv, Unknown Provider 06/08/2009 Telephone [address] [address] [place] [address] Yesenia Modi MD Urgent Symptom(s) 05/30/2009 CPE - 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 EXAMINER RATING CLERK UNSPECIFIED Routine Gynecological Examination 05/30/2009 Orders Only LAB UNSPECIFIED 05/16/2009 Telephone [address] [address] [place] [address] Yesenia Modi MD Letter/form Request 12/08/2008 Telephone [address] [address] [place] [address] Yesenia Modi MD No Show 11/09/2008 Orders Only [place] [address] [address] [place] [address] Yesenia Modi MD 11/09/2008 1:00 PM EST CPE - 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 [facility] [address] [place] [address] Yesenia Modi MD Routine General Medical Examination at a Health Care Facility; Need for Prophylactic Vaccination with Tetanus-Diphtheria (TD) 05/24/2008 Orders Only LAB UNSPECIFIED 05/24/2008 CPE - 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 EXAMINER RATING CLERK UNSPECIFIED Routine Gynecological Examination 04/10/2008 Office Visit EXAMINER RATING CLERK UNSPECIFIED Vaginitis and Vulvovaginitis 03/15/2008 Office Visit EXAMINER RATING CLERK UNSPECIFIED Vaginitis and Vulvovaginitis 09/27/2007 Orders Only LAB UNSPECIFIED 09/27/2007 Office Visit EXAMINER RATING CLERK UNSPECIFIED Vaginitis and Vulvovaginitis 05/19/2007 Office Visit EXAMINER RATING CLERK UNSPECIFIED Vaginitis and Vulvovaginitis 05/19/2007 Orders Only LAB UNSPECIFIED 03/18/2007 CPE - 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 EXAMINER RATING CLERK UNSPECIFIED Routine Gynecological Examination 02/23/2007 Office Visit EXAMINER RATING CLERK UNSPECIFIED Vaginitis and Vulvovaginitis 10/02/1998 CPE - [...] Overview (01/31/2010): Td: 2008 PAP: May 2009 -[employer] Whitten Immunizations Immunization Administration Dates Next [...] Alive Social History Smoking Status as of 09/27/2025 Tobacco Use Types Packs/Day Years Used Date [...] Not on file Procedures * Due to [place] state law, this organization might not be [...] 3:30 PM EDT Results * Due to [place] state law, this organization might not be [...] 3:43 PM EDT Narrative Resulting Agency Comment [id number] Kirstie Martínez MD LAB SAME DAY RESULT Final Result Performing Organization Address [facility] Co de Phone Number [facility] [address] [place] [address] * HEMOGLOBIN A1C (03/25/2021 9:15 AM EDT) [...] 3:43 PM EDT Narrative Resulting Agency Comment [id number] Kirstie Martínez MD LABORATORY Final Result Performing Organization Address City/[facility] Co de Phone Number [facility] [address] [place] [address] * VITAMIN D, 25-HYDROXY, TOTAL, IMMUNOASSAY (03/25/2021 [...] D, (D2,D3), LC/MS/MS is recommended: order code 64895 (patients >2yrs). See Note 1 Note 1 For additional information, please refer to http://Mirifice.Genymobile/faq/ORH473 (This link is being provided for informational/ educational purposes only.) 03/25/2021 9:15 AM EDT 03/25/2021 3:43 PM EDT us Kirstie Martínez MD LABORATORY Final Result [facility] [address] [place] [address] * (ABNORMAL) LIPID PANEL WITH REFLEX TO [...] LDL-C. Wilver MICHELLE et al. JUAN. 2013;310(19): 4782-5125 (http://education.Genymobile/faq/DMF094) CHOL/HDL Ratio 3.1 <5.0 (calc) [facility] Cholesterol Non-HDL 151(H) <130 mg/dL (calc) [facility] Comment: For patients with diabetes plus 1 major ASCVD risk factor, treating to a non-HDL-C goal of <100 mg/dL (LDL-C of <70 mg/dL) is considered a therapeutic option. 03/25/2021 9:15 AM EDT 03/25/2021 3:43 PM EDT Narrative Resulting Agency Comment [id number] Kirstie Martínez MD LABORATORY Final Result Performing Organization Address [facility] Co de Phone Number [facility] [address] [place] [address] * FECAL GLOBIN IMMUNOCHEMICAL TEST (SHALA) (03/25/2021) Fecal Globin Immunochemical Test SEE NOTE [facility] Comment: FECAL GLOBIN BY IMMUNOCHEMISTRY Micro Number: [id number] Test Status: Final Specimen Source: INSURE () FOBT TEST CARD Specimen Quality: Adequate Fecal Globin: Not Detected The specimen receive date on this report reflects the date that [employer] received the test order from the physician. The specimen would have been separately submitted by the patient at a later date. 03/25/2021 03/25/2021 3:4 3 PM EDT Narrative Resulting Agency Comment [id number] Kirstie Martínez MD LABORATORY Final Result Performing Organization Address [facility] de Phone Number [facility] [address] [place] [address] * MAMMOGRAM SCREENING TOMOSYNTHESIS, BILATERAL FC (06/08/2020 [...] is included. Bacteria culture (Urine) SEE NOTE(A) [facility] Comment: CULTURE, URINE, ROUTINE MICRO NUMBER: [id number] TEST STATUS: FINAL SPECIMEN SOURCE: NOT GIVEN [...] 7:55 PM EDT Narrative Resulting Agency Comment [id number] Beth CARABALLO LABORATORY Final Result Performing Organization Address [facility] de Phone Number [facility] [address] [place] [address] * (ABNORMAL) URINALYSIS, COMPLETE INCLUDES DIPSTICK AND [...] 7:55 PM EDT Narrative Resulting Agency Comment [id number] Beth CARABALLO LAB SAME DAY RESULT Final Res ult Performing Organization Address [facility] Co de Phone Number [facility] [address] [place] [address] * CBC INCLUDES DIFFERENTIAL AND PLATELET COUNT [...] 12:39 AM EDT Narrative Resulting Agency Comment [id number] us Oni Graham MD LAB SAME DAY RESULT Final Resu lt Performing Organization Address City/[facility] Co de Phone Number [facility] [address] [place] [address] * THYROID CASCADING REFLEX (01/31/2019 4:34 PM EDT) TSH 2.37 mIU/L [facility] Comment: Reference Range > or = 20 Years 0.40-4.50 Ranges First trimester 0.26-2.66 Second trimester 0.55-2.73 Third trimester 0.43-2.91 01/31/2019 4:34 PM EDT 02/01/2019 12:39 AM EDT Narrative Resulting Agency Comment [id number] us Oni Graham MD LABORATORY Final Result Performing Organization Address [facility] Co de Phone Number [facility] [address] [place] [address] * URINE DIP, REFLEX TO MICROSCOPIC (01/31/2019 [...] 12:39 AM EDT Narrative Resulting Agency Comment [id number] us Oni Graham MD LAB SAME DAY RESULT Final Resu lt [facility] [address] [place] [address] * (ABNORMAL) BASIC METABOLIC PANEL WITH (GFR) [...] needs for GFR calculation. Resulting Agency Comment [id number] Oni Graham MD LABORATORY Final Result Performing Organization Address [facility]/ZIP Co de Phone Number [facility] [address] [place] [address] * THINPREP TIS PAP AND HPV RNA, HR E6/E7, TMA (11/03/2017 4:40 PM EST) Clinical information None given [facility] Date last menstrual period [id number] [facility] Date of previous PAP smear NONE GIVEN [facility] Date of previous biopsy NONE GIVEN [facility] Specimen source (Cvx/Vag) Vagina, Cervix, Endocervix [facility] Statement of Adequacy (Cvx/Vag) Satisfactory for evaluation. Endocervical/gonzalez sformation zone component absent. [facility] Cytology, Pap Smear Negative for intraepithelial lesion or malignancy. [facility] Microorganism identified (Cvx/Vag) Shift in vaginal elsie suggestive of bacterial vaginosis. [facility] Cytology study comment (Cvx/Vag) This Pap test has been evaluated with computer assisted technology. [facility] Local Government Legislator (Cvx/Vag) AMELIA KINNEY(ASCP) CT screening location: [place] [address] [place] HPV MRNA E6/E7 Not Detected Not Detected [facility] Comment: This test was performed using the APTIMA HPV Assay ([employer] This assay detects E6/E7 viral messenger RNA (mRNA) from 14 high-risk HPV types (16,18,31,33,35,39,45,51,52,56,58,59,66,68). 11/03/2017 4:40 PM EST 11/04/2017 4:38 AM EST Narrative Resulting Agency Comment [id number] Oni Graham MD PATHOLOGY-INTERFACED Final Res ult Performing Organization Address [facility]/ZIP Co de Phone Number [facility] [address] [place] [address] * (ABNORMAL) CULTURE, GENITAL (11/03/2017 4:15 PM EST) Bacteria culture (Genital) SEE NOTE(A) [facility] Comment: CULTURE, GENITAL MICRO NUMBER: [id number] TEST STATUS: FINAL SPECIMEN SOURCE: GENITAL SPECIMEN QUALITY: ADEQUATE RESULT: Scant growth of Group B Streptococcus isolated Beta-hemolytic Streptococci are predictably susceptible to penicillin and other beta-lactams. Susceptibility testing not routinely performed. COMMENT: Normal urogenital elsie also present. 11/03/2017 4:15 PM EST 11/03/2017 10:22 PM EST Narrative Resulting Agency Comment [id number] us Oni Graham MD LABORATORY Final Result Performing Organization Address [facility] Co de Phone Number [facility] [address] [place] [address] * GLUCOSE (BLOOD) (10/19/2017 4:05 PM EST) Pathologist [facility] Glucose 89 65 - 99 mg/dL [facility] Comment:Fasting reference in terval 10/19/2017 4:05 PM EST 10/19/2017 10:43 PM EST Narrative Resulting Agency Comment [id number] us Oni Graham MD LAB SAME DAY RESULT Final Resu lt Performing Organization Address [facility] de Phone Number [facility] [address] [place] [address] * FINGERS - RIGHT (06/25/2011 1:54 PM EDT) Pathologist [facility] RADIOLOGY REPORT Right fourth finger: Three views. Indication status post injury. No fracture, dislocation or other bone or joint abnormality is seen. The soft tissues are normal. Impression: No bony abnormality. [facility] RAD Anatomical Region Laterality Modality Other 06/25/2011 1:54 PM EDT Narrative 06/25/2011 1:57 PM EDT Reason for Study/History: Indication status post injury. TEST(S) PROCESSED BY [facility] XRAY Emergency Rm Provider [facility] IMAGING-[facility] Final Result * XRAY HAND MIN 3 [...] Lester Reason for Study/History: TEST(S) PROCESSED BY [facility] XRAY us Unknown Provider [facility] IMAGING-[facility] Final Resul t * CBC 5 PART [...] Ordered by Emergency Room us Unknown Provider [facility] LABORATORY Final Resul t * (ABNORMAL) LIPASE (06/08/2009 9:52 PM EDT) LIPASE 60(H) 0 - 59 U/L 06/08/2009 9:52 PM EDT 06/08/2009 9:52 PM EDT Narrative 06/08/2009 10:40 PM EDT Ordered by Emergency Room us Unknown Provider [facility] LABORATORY Final Resul t * (ABNORMAL) AMYLASE (06/08/2009 9:52 PM EDT) AMYLASE 102(H) 0 - 99 U/L 06/08/2009 9:52 PM EDT 06/08/2009 9:52 PM EDT Narrative 06/08/2009 10:40 PM EDT Ordered by Emergency Room us Unknown Provider [facility] LABORATORY Final Resul t * (ABNORMAL) HEPATIC [...] EDT Ordered by Emergency Room Unknown Provider [facility] LABORATORY Final Resul t * BASIC METABOLIC [...] EST >60.0 60.0 - 128.0 mL/min IF -GERMAN >60.0 60.0 - 128.0 mL/min 06/08/2009 9:52 PM EDT 06/08/2009 9:52 PM EDT Narrative 06/08/2009 10:40 PM EDT Ordered by Emergency Room Unknown Provider [facility] LABORATORY Final Resul t * BASIC METABOLIC [...] PA & LAT (01/14/2007 4:50 PM EDT) [facility] RADIOLOGY REPORT Chest, 2 views: No previous. The cardiomediastinal contour, pulmonary vasculature, and lung wong are within normal limits. Pleural reflections are clear and bony structures are unremarkable. IMPRESSION: No active disease. [facility] (CLIA# [id number]) Anatomical Region Laterality Modality Other 01/14/2007 4:50 PM EDT Narrative 01/15/2007 11:23 AM EDT Reason for Study/History: + ppd TEST(S) PROCESSED BY [facility] Katja Allison MD GENERAL IMAGING- OTHER Final Result * HEPATITIS B SURFACE ANTIBODY, QUANTITATIVE (01/14/2007 3:30 PM EDT) [facility] HEPATITIS B SURFACE AB QUANTITATIVE 58 MIU/ML [facility] (CLIA# [id number]) Comment: < 10MIU/ML PATIENT DOES NOT HAVE IMMUNITY TO HEPATITIS B VIRUS. > OR EQUAL TO 10 MIU/ML PATIENT HAS IMMUNITY TO HEPATITIS B VIRUS. 01/14/2007 3:30 PM EDT 01/16/2007 2:16 AM EDT Katja Allison MD LABORATORY Final Result [facility] (CLIA# [id number]) [address] [place] [address] * VARICELLA IGG AB (01/14/2007 3:30 PM EDT) [facility] VARICELLA ZOSTER IGG 1.3 (IMMUNE) ISR [facility] (CLIA# [id number]) Comment: <=0.90 NEGATIVE 0.91-1.09 EQUIVOCAL >=1.10 POSITIVE [...] MD LABORATORY Final Result Performing Organization Address City/[facility]/ZIP Co de Phone Number [facility] (CLIA# [id number]) [address] [place] [address] * RUBEOLA IGG AB (01/14/2007 3:30 PM EDT) RUBEOLA IGG AB 3.2 (IMMUNE) SEE BELOW [facility] (CLIA# [id number]) Comment:REFERENCE: 1.1 OR > INDICATES ANTIBODY 01/14/2007 3:30 PM EDT 01/16/2007 2:16 AM EDT Katja Allison MD LABORATORY Final Result Performing Organization Address [facility] Co de Phone Number [facility] (CLIA# [id number]) [address] [place] [address] * RUBELLA IGG AB (01/14/2007 3:30 PM EDT) RUBELLA IGG AB 5.44 (IMMUNE) SEE BELOW [facility] (CLIA# [id number]) Comment: REFERENCE: 1.1 OR > INDICATES ANTIBODY THE PRESENCE OF RUBELLA IGG ANTIBODY SUGGESTS A CURRENT OR PAST INFECTION OR IMMUNIZATION WITH RUBELLA VIRUS. 01/14/2007 3:30 PM EDT 01/16/2007 2:16 AM EDT Katja Allison MD LABORATORY Final Result Performing Organization Address City/[facility] Co de Phone Number [facility] (CLIA# [id number]) [address] [place] [address] * MUMPS ANTIBODY (IGG) (01/14/2007 3:30 PM EDT) MUMPS VIRUS AB.IGG 4.9 (IMMUNE) SEE BELOW [facility] (CLIA# [id number]) Comment:REFERENCE: 1.1 OR > INDICATES ANTIBODY 01/14/2007 3:30 PM EDT 01/16/2007 2:16 AM EDT us Katja Allison MD LABORATORY Final Result Performing Organization Address City/State/[facility] Co de Phone Number [facility] (CLIA# [id number]) [address] [place] [address] Visit Diagnoses Diagnosis Start Date Health examination [...] lower extremities with inflammation 05/23/2021 Care Teams Sfdc Technical Architect Relationship Specialty Start Date End Date Zabrina Price MD [address] [address] PCP - General Family Medicine 02/26/22
--- OUTSIDE RECORDS SUMMARY | 2025-09-27 10:37 | XMS_ITS | Encounter Summary ---
Author Organization [facility] Address [address] [place] [address] Care Team Providers Care Surveyor'S Assistant Name Role Phone Oni Graham MD Primary Care Provider [phone] Kirstie Martínez MD Primary Care Provider [phone] Unknown Pcp, Non g Primary Care Provider Unava ilZabrina Craig MD Primary Care Provider [phone] Encounter Details Date Type Department Care Team (Late st Contact Info) Description 04/06/2019 Orders Only [facility] Primary Care Internal Medicine [address] [place] [address] [address] [place] [phone] Oni Graham MD [facility] [address] [place] [phone] Social History Tobacco Use Types Packs/Day Years [...] 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 Procedure Name Priority Date/Time Associated Diagnosis Comments CULTURE, URINE, ROUTINE Routine 04/06/2019 11:04 AM EDT Urinary frequency Burning with urination URINALYSIS, COMPLETE INCLUDES DIPSTICK AND MICROSCOPIC Routine 04/06/2019 11:04 AM EDT Urinary frequency Burning with urination documented in this encounter Results * Due to [place] [employer] law, this organization might not be sharing [...] 7:55 PM EDT Narrative Resulting Agency Comment [id number] [facility] SAME DAY RESULT Final Res ult [facility] [address] [place] [address] * (ABNORMAL) CULTURE, URINE, ROUTINE (04/06/2019 11:04 AM EDT) Bacteria culture (Urine) SEE NOTE(A) [facility] Comment: CULTURE, URINE, ROUTINE MICRO NUMBER: [id number] TEST STATUS: FINAL SPECIMEN SOURCE: NOT GIVEN [...] 7:55 PM EDT Narrative Resulting Agency Comment [id number] [facility] Final Result Performing Organization Address City/State/[facility] Co de Phone Number [facility] [address] [place] [address] documented in this encounter Visit Diagnoses Diagnosis Urinary frequency Burning with urination Dysuria documented in this encounter Care Teams Surveyor'S Assistant Relationship Specialty Start Date End Date Oni Graham MD PCP - General 10/06/17 09/13/20 Kirstie Martínez MD [address] [place] [address] PCP - General 09/14/20 02/22/22 Unknown Pcp, Non [facility]mg PCP - General 02/23/22 02/25/22 Zabrina Price MD [address] [address] PCP - General Family Medicine 02/26/22 documented as of this encounter
--- OUTSIDE RECORDS SUMMARY | 2025-09-27 10:37 | XMS_ITS | Clinical Summary ---
Author Organization [facility] Address [address] [place] [address] Phone Care Team Providers Care Bread Jockey Name Role Phone Zabrina Price MD Primary Care Provider [phone] Allergies Active Allergy Reactions Criticality Noted Date [...] topic Medical Devices Not on file Insurance [facility] [employer] [address] [place] [address] [place] [address] [employer] [place] [address] [place] [address] [address] [address] [place] [address] [address] [employer] Care Teams Bread Jockey Relationship Specialty Start Date End Date Zabrina Price MD [address] [place] [phone] [email or web address] PCP - General Family Medicine 05/06/22 Additional Source Comments The information contained in this document represents components of the legal health record. It is not the complete legal health record.[facility]
[2025-10-02] VITALS (7 sets, daily range): BP systolic 129–149; BP diastolic 79–100; PULSE 61–109; RESP 14–17; TEMP 36.1–36.6; O2SAT 94–100; BMI 35.6
[2025-10-02 11:55] LABS: UPreg QC Valid YES
[2025-10-02] MEDS: Lactated Ringers 1,000 ML 100 ML IVCONT (12:09)
--- NOTE | 2025-10-02 13:08 | MHC.SHP ---
Pre-Procedural Eval Section A - 24 Hr Update-Section A only Date of Service: 10/02/25 The patient is an INPATIENT: No Changes since office visit: No Cold of Flu in the past 2 weeks, No New Medical Problems, No Changes in Medication and No Patient answered all questions The patient has been examined within 24 hours of the surgical procedure. The History & Physical has been completed within 30 days and I have reviewed it.: Yes Section B - Complete if H&P > 30 days Chief Complaint: Postmenopausal bleeding Allergies: Allergies Allergy/AdvReac Type Severity Reaction Status Date / Time acetaminophen (From Vicodin) Allergy Intermediate Nausea and Verified 09/26/25 08:12 Vomiting hydrocodone (From Vicodin) Allergy Intermediate Nausea and Verified 09/26/25 08:12 Vomiting Plan Diagnosis/Plan: Unchanged I have reviewed the history and physical and performed a pertinent physical examination on my patient. No changes have occurred unless specified. Time Spent With Patient Time: Total time managing care of this patient today ____ minutes.
--- NOTE | 2025-10-02 14:31 | PM.OP ---
Brief Operative Note Date of Service: 10/02/25 Pre-op diagnosis: Postmenopausal bleeding Post-op diagnosis: same Procedure: Hysteroscopy D&C Surgeon: Charles Carmen MD Anesthesia: GLMA Was an Waste Removalist used for this Procedure?: No Estimated blood loss (mL): 0 Pathology: other (Endometrial Scrapping) Condition: stable Disposition: PACU
--- NOTE | 2025-10-02 14:32 | P.OP_ITS ---
Operative Note Operative Note Date of Service: 10/02/25 Narrative: Preop Diagnosis: Post Menopausal bleeding Operation: Diagnostic Hysteroscopy, Dilataion & Curettage Post Op Diagnosis: Same QBL: Minimal Anesthesia: GLMA Surgeon: Charles Carmen MD Cert Occupational Therapy Asst: None Complication: None Pathology: Endometrial Scrapings Procedure: The patient was put in the dorsal lithotomy position, scrubbed, and draped in the usual manner. A sterile speculum was inserted in the patient's vagina. The anterior lip of the cervix was grasped with a single tooth tenaculum. The cervix was dilated up to 5 mm, then the scope was inserted in the patient's uterus. Inspection revealed Normal endometrial cavity. The Myosure Reach device was used; the scope was removed from the endometrial cavity , sharp curettings was carried on with minimal to moderate amount of tissues retrieved. At the end of the procedure, all instruments were taken out of the patient uterine and vaginal cavity. The single tooth tenaculum was removed and homeostasis was assured using pressure,. The patient tolerated the procedure wel l and was transferred to the PACU in a stable condition.
== END 2025-10-02 15:32 | disposition home or self-care (01) ==
PROVIDERS: PCP Internal Medicine; Visit Provider Obstetrics & Gynecology
PROC: 0UDB8ZZ Extraction of Endometrium, Via Natural or Artificial Opening Endoscopic (ICD-10-PCS; CPT 58558; principal; 2025-10-02 13:30)
DX: N95.0 Postmenopausal bleeding (principal); D25.1 Intramural leiomyoma of uterus; D25.2 Subserosal leiomyoma of uterus; I10 Essential (primary) hypertension; E78.00 Pure hypercholesterolemia, unspecified; Z88.8 Allergy status to other drugs, medicaments and biological substances; Z79.899 Other long term (current) drug therapy
CPT/HCPCS: 58558; 81025; 88305; J1100; J2003; J2250; J2405; J2704; J3010

== ENCOUNTER → 2025-10-02 11:38 | Outpatient (BNV) | payer OTHER, SELFPAY | PROVIDERS: PCP Internal Medicine; Visit Provider Obstetrics & Gynecology | DX: N95.0 Postmenopausal bleeding (principal) | CPT/HCPCS: 58558 ==